=== PATIENT | female | born 1960 | race American Indian/Alaskan Native ===

== ENCOUNTER → 2017-09-20 15:09 | Outpatient (CLI) | payer OTHER, SELFPAY | PROVIDERS: Family Provider Family Medicine; PCP Family Medicine; Visit Provider Family Medicine | DX: R30.0 Dysuria (principal) | CPT/HCPCS: 87086 ==

== ENCOUNTER → 2017-10-16 19:09 | Outpatient (CLI) | payer OTHER, SELFPAY | PROVIDERS: Family Provider Family Medicine; PCP Family Medicine; Visit Provider Physician Assistant | DX: N39.0 Urinary tract infection, site not specified (principal) | CPT/HCPCS: 87086 ==

== ENCOUNTER → 2017-10-17 15:30 | Outpatient (CLI) | payer OTHER, SELFPAY ==
[2017-10-17 17:16] LABS: Urine N gonorrhoeae NOT DETECTED
[2017-10-17 17:25] LABS: Urine Chlamydia NOT DETECTED
== END ==
PROVIDERS: Family Provider Family Medicine; PCP Family Medicine; Visit Provider Physician Assistant
DX: Z11.3 Encounter for screening for infections with a predominantly sexual mode of transmission (principal); N39.0 Urinary tract infection, site not specified
CPT/HCPCS: 87491; 87591

== ENCOUNTER 2017-11-20 15:49 | Emergency (ER) | payer OTHER, SELFPAY ==
--- NOTE | 2017-11-20 15:57 | ED_ITS ---
HPI - Chest Pain <CAMRYN Landa - Last Filed: 11/20/17 22:19> General Chief Complaint: Chest Pain Stated Complaint: CHEST PAIN Time Seen by Provider: 11/20/17 15:56 Source: patient Mode of arrival: ambulatory Limitations: no limitations History of Present Illness HPI narrative: 56-year-old female with history of hypertension brought here by her primary care provider to to having a chest pain for the last 4 days. Patient states that she has had constant chest pain into her left side of her chest for the last 4 days. She states that she believes the symptoms started after she had an off brand of her lisinopril given to her 4 days ago. She states that she went back to the pharmacy and got her normal brand and is feeling better however she still is having some chest pain. She denies any nausea vomiting.. She does report that she did have some diaphoresis. She denies any stressors or relievers of her chest pain. She denies any shortness of breath patient is ambulatory into the emergency room. MD complaint: chest pain Related Data Previous Rx's Medication Instructions Recorded omeprazole 20 mg PO BID #60 cap 06/28/17 lisinopril 10 mg PO QDAY #45 tabs 07/29/17 carisoprodol 350 mg tablet 350 mg PO QHS PRN #90 tab 10/21/17 ibuprofen 800 mg tablet 800 mg PO BID #60 tab 11/19/17 oxycodone-acetaminophen 10 mg-325 1 tab PO Q4-6 HRS PRN #180 tab 11/20/17 mg tablet clotrimazole-betamethasone 1 1 applictn TOPICAL Q DAY #30 gram 11/22/17 %-0.05 % topical cream Blood pressure monitor #1 ea NS 11/26/17 Allergies Allergy/AdvReac Type Severity Reaction Status Date / Time codeine [CODEINE] Allergy Unknown NAUSEA, Verified 11/20/17 14:17 HEADACHE Review of Systems <CAMRYN Landa - Last Filed: 11/20/17 22:19> Constitutional Denies chills, Denies fatigue, Denies fever(s), Denies lethargy and Denies weakness Eyes Denies change in vision, Denies eye discharge, Denies irritation and Denies loss of vision ENT Ears, Nose, Mouth, and Throat: Denies change in voice, Denies neck pain and Denies sore throat Cardiovascular Reports chest pain, Denies dyspnea and Denies dyspnea on exertion Respiratory Denies cough, Denies dyspnea, Denies dyspnea on exertion and Denies wheezing Gastrointestinal Gastrointestinal: Denies abdominal pain, Denies change in bowel habits, Denies diarrhea, Denies nausea and Denies vomiting Genitourinary Denies hematuria, Denies flank pain, Denies urinary incontinence and Denies urinary urgency Musculoskeletal Denies neck pain Integumentary/Breasts Denies pruritus, Denies erythema, Denies rash and Denies wounds Neurologic Denies confusion, Denies loss of vision and Denies weakness Psychiatric Denies anxiety, Denies confusion, Denies depression, Denies homicidal ideation and Denies suicidal ideation Endocrine Denies fatigue and Denies flushing Hematologic/Lymphatic Denies easy bruising Allergic/Immunologic Denies wheezing Exam <CAMRYN Landa - Last Filed: 11/20/17 22:19> Initial Vital Signs Initial Vital Signs: Vital Signs Temperature 98.5 F 11/20/17 16:00 Pulse Rate 80 11/20/17 16:00 Respiratory Rate 16 11/20/17 16:00 Blood Pressure 120/52 L 11/20/17 16:00 Pulse Oximetry 98 11/20/17 16:00 Const General: cooperative and well developed Nutritional Appearance: well nourished Orientation: alert, awake, oriented x3 and not confused [facility] Mouth: oral mucosae normal and moist mucous membranes Neck Neck: normal visual inspection, trachea midline, No lymphadenopathy, No midline deformity and No JVD Lymphatic: No lymphedema Chest Chest: normal inspection of the chest Other: Slight tenderness on palpation to the left upper chest Resp Effort & Inspection: normal respiratory effort, able to speak in complete sentences, no respiratory distress and no use of accessory muscles Auscultation: clear to auscultation bilaterally, no rales, no rhonchi and no wheezes Cardio Rate: regular rate Rhythm: regular rhythm Heart Sounds: no click, no gallops, no murmurs and no rubs Skin General: no rashes or lesions noted, No jaundice and No petechiae Neuro General: alert, oriented x3, gait normal and no focal motor deficits Speech: speech normal <Ashok Servin DO - Last Filed: 12/07/17 07:59> Initial Vital Signs Initial Vital Signs: Vital Signs Temperature 98.5 F 07/25/18 16:00 Pulse Rate 80 11/20/17 16:00 Respiratory Rate 16 11/20/17 16:00 Blood Pressure 120/52 L 11/20/17 16:00 Pulse Oximetry 98 11/20/17 16:00 Course <CAMRYN Landa - Last Filed: 11/20/17 22:19> Orders Ordered: Discontinued Medications Sodium Chloride (Normal Saline 0.9%) 1,000 mls @ 150 mls/hr IV CONT MIGUEL Last Admin: 11/20/17 17:28 Dose: Vital Signs - 8 hr 11/20/17 16:00 11/20/17 16:37 11/20/17 17:06 Temperature 98.5 F Pulse Rate 80 88 68 Respiratory Rate 16 14 13 Blood Pressure 120/52 L Blood Pressure [Left Arm] 101/65 99/45 L Pulse Oximetry 98 97 97 <Ashok Servin DO - Last Filed: 12/07/17 07:59> Orders Ordered: Discontinued Medications Sodium Chloride (Normal Saline 0.9%) 1,000 mls @ 150 mls/hr IV CONT MIGUEL Last Admin: 11/20/17 17:28 Dose: Vital Signs - 8 hr 11/20/17 16:00 11/20/17 16:37 11/20/17 17:06 Temperature 98.5 F Pulse Rate 80 88 68 Respiratory Rate 16 14 13 Blood Pressure 120/52 L Blood Pressure [Left Arm] 101/65 99/45 L Pulse Oximetry 98 97 97 MDM - Chest Pain <CAMRYN Landa - Last Filed: 11/20/17 22:19> Lab Data Result diagrams: 11/20/17 16:07 11/20/17 16:07 Lab Results 11/20/17 11/20/17 Range/Units 16:07 16:07 WBC 8.3 (4.5-11.0) X10^3/uL RBC 4.68 (4.0-5.2) X10^6/uL Hgb 14.6 (12.0-16.0) g/dL Hct 43.2 (36-46) % MCV 92.3 (80-100) fL MCH 31.2 (26-34) PG MCHC 33.8 (30-36) % RDW 13.0 (11.6-14.8) % Plt Count 200 (150-400) X10^3/uL Neut % (Auto) 59.2 (50-75) % Lymph % (Auto) 30.3 (25-40) % Winston % (Auto) 9.0 (3-14) % Eos % (Auto) 1.0 L (2-4) % Baso % (Auto) 0.5 (0-2) % Neut # (Auto) 4900 (6787-2692) /uL Sodium 139 (137-145) mmol/L Potassium 4.1 (3.4-5.1) mmol/L Chloride 101 (98-107) mmol/L Carbon Dioxide 31 (22-32) mmol/L BUN 11 (7-17) mg/dL Creatinine 0.50 L (0.52-1.04) mg/dL Estimated GFR > 60.0 (>60) mL/min BUN/Creatinine Ratio 22.0 (6-22) Glucose 113 H (70-100) mg/dL Calcium 9.7 (8.4-10.2) mg/dL Total Bilirubin 0.3 (0.2-1.3) mg/dL AST 23 (14-36) IU/L ALT 23 (9-52) IU/L Alkaline Phosphatase 51 (38-126) U/L Total Creatine Kinase 180 H (30-135) U/L CK-MB (CK-2) 2.16 (<2.37) ng/mL CK-MB (CK-2) Rel Index 1.2 L (1.5-5.0) % Troponin I < 0.012 (0.01-0.034) ng/mL Total Protein 7.6 (6.3-8.2) g/dL Albumin 4.5 (3.5-5.0) g/dL Globulin 3.1 (1.7-4.1) g/dL Albumin/Globulin Ratio 1.5 (1.0-2.8) Imaging Data Chest x-ray: Radiologist's impression: Patient: Elsa Quan MR#: [id number] : 1960 Acct:[id number] Age/Sex: 56 / F Date of Service: 11/20/17 Loc: ED Accession Number: [id number] Procedure: XR chest 1V Ordering Provider: Stephon Villarreal PROCEDURE: XR CHEST 1V INDICATIONS: Chest pain TECHNIQUE: One view of the chest was acquired. COMPARISON: None. FINDINGS: Surgical changes and devices: None. Lungs and pleura: No pleural effusions or pneumothorax. Interstitial markings are accentuated right greater than left. Suboptimal inspiration. Mediastinum: Mediastinal contours appear normal. Heart size is normal. Bones and chest wall: No suspicious bony lesions. Overlying soft tissues appear unremarkable. IMPRESSION: Low inspiration normal chest Dictated by: Alban Villar M.D. on 11/20/2017 at 16:26 Approved by: Alban Villar M.D. on 11/20/2017 at 16:27 ECG Data Interpretation: EKG shows normal sinus rhythm with no ST elevation or depression. No ectopy. Ventricular rate is 75. Pr interval of 146. QRS duration is 94. QTC of 392 MDM Narrative Medical decision making narrative: EKG shows normal sinus rhythm with no ST elevation or depression. No ectopy. Chest x-ray was obtained was negative for any acute findings. CBC and Chem panel were obtained were unremarkable. Cardiac enzymes were obtained and were negative. Patient had some pain with palpation to her left upper chest wall signs and symptoms presents more as a muscle skeletal off discomfort more than cardiac. Follow up with primary care provider in the next few days for re-evaluation. If continued symptoms recommend further evaluation such as stress test. Use currently prescribed pain management regimen as needed for any discomfort. Return emergency room for any worsening symptoms. <Ashok Servin DO - Last Filed: 12/07/17 07:59> Lab Data Lab Results 11/20/17 11/20/17 Range/Units 16:07 16:07 WBC 8.3 (4.5-11.0) X10^3/uL RBC 4.68 (4.0-5.2) X10^6/uL Hgb 14.6 (12.0-16.0) g/dL Hct 43.2 (36-46) % MCV 92.3 (80-100) fL MCH 31.2 (26-34) PG MCHC 33.8 (30-36) % RDW 13.0 (11.6-14.8) % Plt Count 200 (150-400) X10^3/uL Neut % (Auto) 59.2 (50-75) % Lymph % (Auto) 30.3 (25-40) % Winston % (Auto) 9.0 (3-14) % Eos % (Auto) 1.0 L (2-4) % Baso % (Auto) 0.5 (0-2) % Neut # (Auto) 4900 (6421-4566) /uL Sodium 139 (137-145) mmol/L Potassium 4.1 (3.4-5.1) mmol/L Chloride 101 (98-107) mmol/L Carbon Dioxide 31 (22-32) mmol/L BUN 11 (7-17) mg/dL Creatinine 0.50 L (0.52-1.04) mg/dL Estimated GFR > 60.0 (>60) mL/min BUN/Creatinine Ratio 22.0 (6-22) Glucose 113 H (70-100) mg/dL Calcium 9.7 (8.4-10.2) mg/dL Total Bilirubin 0.3 (0.2-1.3) mg/dL AST 23 (14-36) IU/L ALT 23 (9-52) IU/L Alkaline Phosphatase 51 (38-126) U/L Total Creatine Kinase 180 H (30-135) U/L CK-MB (CK-2) 2.16 (<2.37) ng/mL CK-MB (CK-2) Rel Index 1.2 L (1.5-5.0) % Troponin I < 0.012 (0.01-0.034) ng/mL Total Protein 7.6 (6.3-8.2) g/dL Albumin 4.5 (3.5-5.0) g/dL Globulin 3.1 (1.7-4.1) g/dL Albumin/Globulin Ratio 1.5 (1.0-2.8) Discharge Plan Departure Patient Disposition: Home, Self-Care Clinical Impression: Chest pain Discharge Date/Time: 11/20/17 17:42 Interventions: ED Discharge Assessment Last Done: 11/20/17 17:41 Instructions: DI for Atypical Chest Pain Activity Restrictions/Additional Instructions: EKG, laboratory results and chest x-ray were unremarkable today. Signs and symptoms presents as chest wall muscular pain. [id number] Tylenol or currently prescribed pain management regimen as needed for any discomfort. Follow up with her primary care provider in the next few days for re- evaluation. If continued symptoms recommend discussing with primary care provider further evaluation such as stress test. Return emergency room for any worsening symptoms. Prescriptions: No Action oxycodone-acetaminophen [Percocet] 10-325 mg tablet 1 tab PO Q4-6 HRS PRN (Reason: pain) Qty: 180 RF: 0 carisoprodol 350 mg tablet 350 mg PO QHS PRN (Reason: spasms) Qty: 90 RF: 0 omeprazole 20 MG capsule,delayed release(DR/EC) 20 mg PO BID Qty: 60 RF: 3 lisinopril 20 MG tablet 10 mg PO QDAY Qty: 45 RF: 1 ibuprofen 800 mg tablet 800 mg PO BID Qty: 60 RF: 3 clotrimazole-betamethasone [Lotrisone] 1-0.05 % cream 1 applictn Topical Q DAY Qty: 30 RF: 0 Blood pressure monitor Qty: 1 RF: 0 Referrals: Candice Dorsey DO [Primary Care Provider] - <Ashok Servin DO - Last Filed: 12/07/17 07:59> Cosign ED Attending Elaine Attestation: I was immediately available in the department for consultation. Documentation has been reviewed. I agree with assessment and plan.
[2017-11-20 16:00] VITALS: BP 120/52; PULSE 80; RESP 16; TEMP 36.9; O2SAT 98; BMI 37.8
--- NOTE | 2017-11-20 16:09 | DI.RAD.S_ITS ---
PROCEDURE: XR CHEST 1V INDICATIONS: Chest pain TECHNIQUE: One view of the chest was acquired. COMPARISON: None. FINDINGS: Surgical changes and devices: None. Lungs and pleura: No pleural effusions or pneumothorax. Interstitial markings are accentuated right greater than left. Suboptimal inspiration. Mediastinum: Mediastinal contours appear normal. Heart size is normal. Bones and chest wall: No suspicious bony lesions. Overlying soft tissues appear unremarkable. IMPRESSION: Low inspiration normal chest Dictated by: Alban Villar M.D. on 11/20/2017 at 16:26 Approved by: Alban Villar M.D. on 11/20/2017 at 16:27
[2017-11-20 16:28] LABS: Add Manual Diff / Slide Review NO; Basophils Percent Auto 0.5 % (0-2); Hematocrit 43.2 % (36-46); Hemoglobin 14.6 g/dL (12.0-16.0); Lymphocytes Percent Auto 30.3 % (25-40); Mean Corpuscular HGB Conc 33.8 % (30-36); Mean Corpuscular Hemoglobin 31.2 PG (26-34); Mean Corpuscular Volume 92.3 fL (80-100); Neutrophils Absolute Auto 4900 /uL (3000-5900); Neutrophils Percent Auto 59.2 % (50-75); Platelet Count 200 X10^3/uL (150-400); Red Blood Cell Count 4.68 X10^6/uL (4.0-5.2); White Blood Cell Count 8.3 X10^3/uL (4.5-11.0)
[2017-11-20 16:37] VITALS: BP 101/65; PULSE 88; RESP 14; O2SAT 97
[2017-11-20 16:41] LABS: Alanine Aminotransferase 23 IU/L (9-52); Albumin 4.5 g/dL (3.5-5.0); Albumin Globulin Ratio 1.5 (1.0-2.8); Alkaline Phosphatase 51 U/L (38-126); Aspartate Aminotransferase 23 IU/L (14-36); Bilirubin Total 0.3 mg/dL (0.2-1.3); Blood Urea Nitrogen 11 mg/dL (7-17); Calcium 9.7 mg/dL (8.4-10.2); Carbon Dioxide 31 mmol/L (22-32); Chloride 101 mmol/L (98-107); Creatine Kinase 180 U/L (30-135); Estimated Glomerular Filt Rate > 60.0 mL/min (>60); Globulin 3.1 g/dL (1.7-4.1); Glucose 113 mg/dL (70-100); HEMOLYSIS < 15 (0-50); Potassium 4.1 mmol/L (3.4-5.1); Sodium 139 mmol/L (137-145); Total Protein 7.6 g/dL (6.3-8.2)
--- NOTE | 2017-11-20 16:42 | PC.NURSE ---
Pt states she has been dieting recently and has lost 5 lbs in 2 weeks. Occasionally only eats lettuce during the day. Discussed healthy weight loss strategy and increased activity.
[2017-11-20 16:56] LABS: CKMB % Relative Index 1.2 % (1.5-5.0); Creatine Kinase MB 2.16 ng/mL (<2.37)
[2017-11-20 16:58] LABS: Troponin I < 0.012 ng/mL (0.01-0.034)
[2017-11-20 17:06] VITALS: BP 99/45; PULSE 68; RESP 13; O2SAT 97
== END 2017-11-20 17:42 | disposition home or self-care (01) ==
PROVIDERS: Emergency Provider Nurse Practitioner Family; Family Provider Family Medicine; PCP Family Medicine
DX: R07.9 Chest pain, unspecified (principal)
CPT/HCPCS: 36591; 71045; 80053; 82550; 82553; 84484; 85025; 93005; 99283; 99285

== ENCOUNTER → 2017-11-28 08:17 | Outpatient (CLI) | payer OTHER, SELFPAY ==
[2017-11-28 10:38] LABS: Alanine Aminotransferase 23 IU/L (9-52); Albumin Globulin Ratio 1.3 (1.0-2.8); Alkaline Phosphatase 46 U/L (38-126); Aspartate Aminotransferase 24 IU/L (14-36); Bilirubin Total 0.4 mg/dL (0.2-1.3); Blood Urea Nitrogen 9 mg/dL (7-17); Calcium 9.4 mg/dL (8.4-10.2); Carbon Dioxide 33 mmol/L (22-32); Chloride 101 mmol/L (98-107); Cholesterol 201 mg/dL (140-199); Estimated Glomerular Filt Rate > 60.0 mL/min (>60); Globulin 3.1 g/dL (1.7-4.1); Glucose 94 mg/dL (70-100); HDL Cholesterol 51 mg/dL (40-60); HEMOLYSIS < 15 (0-50); LDL Cholesterol Calculated 107 mg/dL (<100); Potassium 4.2 mmol/L (3.4-5.1); Sodium 142 mmol/L (137-145); Total Protein 7.1 g/dL (6.3-8.2); Triglycerides 214 mg/dL (35-150)
[2017-11-28 10:51] LABS: Thyroid Stimulating Hormone 2.01 uIU/mL (0.47-4.68)
== END ==
PROVIDERS: Family Provider Family Medicine; PCP Family Medicine; Visit Provider Family Medicine
DX: I10 Essential (primary) hypertension (principal); Z51.81 Encounter for therapeutic drug level monitoring
CPT/HCPCS: 36415; 80053; 80061; 84443

== ENCOUNTER 2017-12-16 21:34 | Emergency (ER) | payer OTHER, SELFPAY ==
--- NOTE | 2017-12-16 21:43 | DI.RAD.S_ITS ---
PROCEDURE: XR CHEST 1V INDICATIONS: Chest Pain TECHNIQUE: One view of the chest was acquired. COMPARISON: [facility], CR, XR CHEST 1V, 11/20/2017, 16:14. FINDINGS: Surgical changes and devices: None. Lungs and pleura: No pleural effusions or pneumothorax. Lungs are clear. Mediastinum: Mediastinal contours appear normal. Heart size is normal. Bones and chest wall: No suspicious bony lesions. Overlying soft tissues appear unremarkable. IMPRESSION: No acute cardiopulmonary disease process. Dictated by: Stacie Blackmon MD, PhD on 12/17/2017 at 9:06 Approved by: Stacie Blackmon MD, PhD on 12/17/2017 at 9:06
[2017-12-16 21:52] VITALS: BP 149/59; PULSE 73
[2017-12-16] MEDS: ASPIRIN 81 MG TAB 324 MG PO (21:52)
[2017-12-16] MEDS: NITROGLYCERIN 0.4 MG SL TAB SL ×2 (21:52→22:06)
[2017-12-16 21:54] VITALS: BP 149/59; PULSE 73; RESP 14; TEMP 36.9; O2SAT 98
[2017-12-16 22:00] LABS: Add Manual Diff / Slide Review NO; Basophils Percent Auto 0.5 % (0-2); Eosinophils Percent Auto 1.3 % (2-4); Hematocrit 39.5 % (36-46); Hemoglobin 13.5 g/dL (12.0-16.0); Lymphocytes Percent Auto 34.8 % (25-40); Mean Corpuscular HGB Conc 34.2 % (30-36); Mean Corpuscular Hemoglobin 31.5 PG (26-34); Monocytes Percent Auto 9.8 % (3-14); Neutrophils Absolute Auto 4700 /uL (3000-5900); Neutrophils Percent Auto 53.6 % (50-75); Platelet Count 190 X10^3/uL (150-400); Red Blood Cell Count 4.29 X10^6/uL (4.0-5.2); Red Cell Distribution Width 12.7 % (11.6-14.8); White Blood Cell Count 8.7 X10^3/uL (4.5-11.0)
[2017-12-16 22:06] VITALS: BP 116/65; PULSE 72
[2017-12-16] MEDS: SODIUM CHLORIDE 0.9% 1,000 ML 150 ML IV (22:06)
[2017-12-16 22:09] LABS: Alanine Aminotransferase 23 IU/L (9-52); Albumin 4.2 g/dL (3.5-5.0); Albumin Globulin Ratio 1.4 (1.0-2.8); Alkaline Phosphatase 50 U/L (38-126); Aspartate Aminotransferase 21 IU/L (14-36); BUN Creatinine Ratio 23.3 (6-22); Bilirubin Total 0.3 mg/dL (0.2-1.3); Blood Urea Nitrogen 14 mg/dL (7-17); Calcium 9.1 mg/dL (8.4-10.2); Carbon Dioxide 29 mmol/L (22-32); Chloride 100 mmol/L (98-107); Creatine Kinase 146 U/L (30-135); Estimated Glomerular Filt Rate > 60.0 mL/min (>60); Globulin 2.9 g/dL (1.7-4.1); Glucose 100 mg/dL (70-100); HEMOLYSIS < 15 (0-50); Lipase 79 U/L (23-300); Potassium 4.2 mmol/L (3.4-5.1); Sodium 137 mmol/L (137-145); Total Protein 7.1 g/dL (6.3-8.2)
[2017-12-16 22:13] VITALS: BP 114/62; PULSE 72; RESP 15; O2SAT 96
[2017-12-16 22:15] VITALS: BP 114/62; PULSE 70
[2017-12-16 22:22] LABS: Troponin I < 0.012 ng/mL (0.01-0.034)
[2017-12-16 22:30] VITALS: BP 115/59; PULSE 69; RESP 12; O2SAT 97
--- NOTE | 2017-12-16 22:59 | DI.CT.S_ITS ---
PROCEDURE: CT ANGIO CHEST ABDOMEN PELVIS INDICATIONS: severe chest pain, radiation to back, arms, shortness of breath TECHNIQUE: Precontrast 5 mm thick sections acquired from the lung apices to the iliac crests. After the administration of intravenous contrast, 2.5 mm thick sections again acquired from the lung apices to the iliac crests. Maximum intensity projection (MIP) oblique sagittal and coronal reformats were then acquired. For radiation dose reduction, the following was used: automated exposure control. COMPARISON: None. FINDINGS: Image quality: Excellent. AORTA: Intramural hematoma: Absent Maximum hematoma thickness: Applicable. Focal contrast enhancement: Intramural blood pool (< 2 mm neck or imperceptible communication with aortic lumen): Absent. Ulcer-like projection (broad communication with aortic lumen > 3 mm): Absent. Dissection: Absent Mahomet classification: Not applicable Maximum aortic diameter: 3.4 cm. [If Sincere A dissection, > 5.0 cm has a poorer prognosis. If Sincere B dissection, > 4.0 cm has a poorer prognosis.] Periaortic hematoma: Absent. CHEST: Lungs and pleura: No acute airspace opacities. No pleural effusions or pneumothorax. Central and peripheral airways are patent and normal in caliber. Mediastinum: Heart size is normal. No pericardial effusion. No mediastinal or hilar adenopathy by size criteria. Central pulmonary arteries are normal in size. Esophagus is normal in caliber. No hiatal hernias. Bones and chest wall: No axillary adenopathy by size criteria. Thyroid gland is within normal limits. No suspicious bony lesions. No vertebral body compression fractures. ABDOMEN: Vasculature: Celiac trunk and mesenteric arteries are patent. Renal arteries are also patent. Solid organs: Liver is normal in size and enhancement. Small cyst left lobe of the liver. Gallbladder is within normal limits in. Biliary system is non dilated. Pancreas enhances normally. Spleen is normal in size and enhancement. No adrenal nodules. Both kidneys are normal in size and enhancement, without hydronephrosis. Peritoneum and bowel: No free fluid or air. Bowel loops are normal in caliber and wall thickness. A few scattered colonic diverticuli without evidence of diverticulitis. Nodes and vessels: No retroperitoneal or mesenteric adenopathy by size criteria. Inferior vena cava is normal in morphology. Miscellaneous: No ventral hernias. PELVIS: Genitourinary: Bladder wall thickness is normal. There is a 6.5 x 4.3 x 6.0 cm predominantly fat density mass with soft tissue density nodular component anterior left of the uterus in the region of left adnexa. The Miscellaneous: No inguinal hernias or adenopathy. No ventral hernias. Bones: No suspicious bony lesions. No vertebral body compression fractures. Spine degenerative disc disease and facet arthropathy. IMPRESSION: 1. No evidence of aortic dissection or aortic aneurysm. 2. 6.5 x 4.3 x 6.0 cm left ovarian dermoid-teratoma. Recommend gynecology consultation. 3. Colonic diverticulosis without evidence of diverticulitis. Dictated by: Stacie Blackmon MD, PhD on 12/17/2017 at 8:17 Approved by: Stacie Blackmon MD, PhD on 12/17/2017 at 8:44
[2017-12-17 00:44] VITALS: BP 110/50; PULSE 62; RESP 15; TEMP 36.8; O2SAT 100
--- NOTE | 2017-12-17 04:30 | ED_ITS ---
HPI - Chest Pain General Chief Complaint: Chest Pain Stated Complaint: CHEST PAIN SWELLING OF FEET Time Seen by Provider: 12/16/17 21:43 Source: patient and family Mode of arrival: ambulatory Limitations: no limitations History of Present Illness HPI narrative: 56-year-old female presents to the emergency department with a chief complaint continued chest pain for the past few weeks. She was seen and evaluated at the end of last month and had thorough evaluation including lab work, EKG and chest x-ray. Today she presents with persisting pain in her chest that radiates to her back and left shoulder. She denies provocation or palliation of the symptoms. She denies associated symptoms such as dizziness, weakness or lightheadedness. Related Data Previous Rx's Medication Instructions Recorded omeprazole 20 mg PO BID #60 cap 06/28/17 lisinopril 10 mg PO QDAY #45 tabs 07/29/17 carisoprodol 350 mg tablet 350 mg PO QHS PRN #90 tab 10/21/17 ibuprofen 800 mg tablet 800 mg PO BID #60 tab 11/19/17 oxycodone-acetaminophen 10 mg-325 1 tab PO Q4-6 HRS PRN #180 tab 11/20/17 mg tablet clotrimazole-betamethasone 1 1 applictn TOPICAL Q DAY #30 gram 11/22/17 %-0.05 % topical cream Blood pressure monitor #1 ea NS 11/26/17 nitroglycerin 0.4 mg SL Q5-15M PRN #60 tab 12/17/17 Allergies Allergy/AdvReac Type Severity Reaction Status Date / Time codeine [CODEINE] Allergy Unknown NAUSEA, Verified 11/20/17 14:17 HEADACHE Review of Systems Review of Systems All systems reviewed & are unremarkable except as noted in HPI and below Constitutional Denies chills, Denies fever(s), Denies lethargy and Denies weakness Eyes Denies change in vision, Denies eye discharge, Denies irritation and Denies loss of vision ENT Ears, Nose, Mouth, and Throat: Denies change in voice, Denies neck pain and Denies sore throat Cardiovascular Reports chest pain, Denies irregular heart rhythm, Denies lightheadedness, Denies palpitations, Denies dyspnea, Denies dyspnea on exertion and Denies orthopnea Respiratory Denies cough, Denies dyspnea, Denies dyspnea on exertion and Denies wheezing Gastrointestinal Gastrointestinal: Denies abdominal pain, Denies change in bowel habits, Denies diarrhea, Denies nausea and Denies vomiting Genitourinary Denies hematuria, Denies flank pain, Denies urinary incontinence and Denies urinary urgency Musculoskeletal Denies neck pain Integumentary/Breasts Denies pruritus, Denies erythema, Denies rash and Denies wounds Neurologic Denies confusion, Denies loss of vision and Denies weakness Psychiatric Denies anxiety, Denies confusion, Denies depression, Denies homicidal ideation and Denies suicidal ideation Endocrine Denies palpitations Hematologic/Lymphatic Denies easy bruising Allergic/Immunologic Denies wheezing [facility] Medical History Arthritis (Chronic Unknown) Chronic pain syndrome (Chronic Unknown) Hypertension (Chronic Unknown) Arthritis of knee (Inactive) Hypertension (Inactive) Insomnia (Inactive) Surgical History Hx of total knee arthroplasty (Resolved 07/2016) Family History Father No problems noted. Social History Smoking Status: Former smoker alcohol intake: never substance use type: does not use caffeine: Yes frequency: 3-4 times per week duration: 30-45 minutes/day Exam Narrative Exam Narrative: GENERAL: Anxious 56-year-old female is obviously uncomfortable and nervous HEAD: Atraumatic. Normocephalic. No temporal or scalp tenderness. EYES: Pupils equal round and reactive. Extraocular motions intact. No scleral icterus. No injection or drainage. ENT: Nose without bleeding, purulent drainage or septal hematoma. Throat without erythema, tonsillar hypertrophy or exudate. Uvula midline. Airway patent. NECK: Trachea midline. No JVD or lymphadenopathy. Supple, nontender, no meningeal signs. CARDIOVASCULAR: Regular rate and rhythm without murmurs, gallops, or rubs. RESPIRATORY: Clear to auscultation. Breath sounds equal bilaterally. No wheezes , rales, or rhonchi. GASTROINTESTINAL: Abdomen soft, non-tender, nondistended. No hepato-splenomegaly , or palpable masses. No guarding. EXTREMITIES: No clubbing, cyanosis, or edema. No joint tenderness, effusion, or edema noted. BACK: Nontender without deformity or crepitance. No flank tenderness. NEURO: AOx3. SKIN: No rash or erythema. Initial Vital Signs Initial Vital Signs: Vital Signs Pulse Rate 73 12/16/17 21:52 Blood Pressure 149/59 H 12/16/17 21:52 Scores HEART Score Heart Score history: Slightly Suspicious Heart Score EKG: Normal Heart Score Age: 45-64 years old Heart Score risk factors: 1-2 risk factors Heart Score troponin: < or = to normal limit Heart Score Total: 2 Course Orders Ordered: Discontinued Medications Aspirin (Aspirin Chew) 324 mg PO NOW ONE Stop: 12/16/17 21:44 Last Admin: 12/16/17 21:52 Dose: 324 mg Aspirin (Aspirin Chew) 324 mg PO NOW ONE Stop: 12/16/17 21:45 Last Admin: 12/16/17 22:15 Dose: Not Given Sodium Chloride (Normal Saline 0.9%) 1,000 mls @ 150 mls/hr IV CONT MIUGEL Last Admin: 12/16/17 22:06 Dose: 150 mls/hr Nitroglycerin (Nitrostat) 0.4 mg SL [id number] PRN PRN Reason: Chest Pain Last Admin: 12/16/17 22:06 Dose: 0.4 mg Admin: 12/16/17 21:52 Dose: 0.4 mg Reevaluation(s) Reevaluation #1: Patient has complete resolution of her symptoms after 2nd administered nitro Vital Signs - 8 hr 12/16/17 21:52 12/16/17 21:54 12/16/17 22:06 Temperature 98.4 F Pulse Rate 73 73 72 Respiratory Rate 14 Blood Pressure 149/59 H 149/59 H 116/65 Blood Pressure [Left Arm] Pulse Oximetry 98 12/16/17 22:13 12/16/17 22:15 12/16/17 22:30 Temperature Pulse Rate 72 70 69 Respiratory Rate 15 12 Blood Pressure 114/62 Blood Pressure [Left Arm] 114/62 115/59 L Pulse Oximetry 96 97 12/17/17 00:44 Temperature 98.2 F Pulse Rate 62 Respiratory Rate 15 Blood Pressure 110/50 L Blood Pressure [Left Arm] Pulse Oximetry 100 MDM - Chest Pain Differential Diagnosis Likely pneumothorax, stable angina, unstable angina pectoris, atypical chest pain, st elevation myocardial infarction, costochondritis, chest pain and biliary colic Medical Records Data Attestation: I reviewed the patient's medical records. Lab Data Attestation: I reviewed the patient's lab results. Result diagrams: 12/16/17 21:52 12/16/17 21:52 Lab Results 12/16/17 12/16/17 Range/Units 21:52 21:52 WBC 8.7 (4.5-11.0) X10^3/uL RBC 4.29 (4.0-5.2) X10^6/uL Hgb 13.5 (12.0-16.0) g/dL Hct 39.5 (36-46) % MCV 92.0 (80-100) fL MCH 31.5 (26-34) PG MCHC 34.2 (30-36) % RDW 12.7 (11.6-14.8) % Plt Count 190 (150-400) X10^3/uL Neut % (Auto) 53.6 (50-75) % Lymph % (Auto) 34.8 (25-40) % [place] % (Auto) 9.8 (3-14) % Eos % (Auto) 1.3 L (2-4) % Baso % (Auto) 0.5 (0-2) % Neut # (Auto) 4700 (2720-1947) /uL Sodium 137 (137-145) mmol/L Potassium 4.2 (3.4-5.1) mmol/L Chloride 100 (98-107) mmol/L Carbon Dioxide 29 (22-32) mmol/L BUN 14 (7-17) mg/dL Creatinine 0.60 (0.52-1.04) mg/dL Estimated GFR > 60.0 (>60) mL/min BUN/Creatinine Ratio 23.3 H (6-22) Glucose 100 (70-100) mg/dL Calcium 9.1 (8.4-10.2) mg/dL Total Bilirubin 0.3 (0.2-1.3) mg/dL AST 21 (14-36) IU/L ALT 23 (9-52) IU/L Alkaline Phosphatase 50 (38-126) U/L Total Creatine Kinase 146 H (30-135) U/L Troponin I < 0.012 (0.01-0.034) ng/mL Total Protein 7.1 (6.3-8.2) g/dL Albumin 4.2 (3.5-5.0) g/dL Globulin 2.9 (1.7-4.1) g/dL Albumin/Globulin Ratio 1.4 (1.0-2.8) Lipase 79 (23-300) U/L Imaging Data CT scan - chest: Radiologist's impression: PROCEDURE: CT ANGIO CHEST ABDOMEN PELVIS INDICATIONS: severe chest pain, radiation to back, arms, shortness of breath TECHNIQUE: Precontrast 5 mm thick sections acquired from the lung apices to the iliac crests. After the administration of intravenous contrast, 2.5 mm thick sections again acquired from the lung apices to the iliac crests. Maximum intensity projection (MIP) oblique sagittal and coronal reformats were then acquired. For radiation dose reduction, the following was used: automated exposure control. COMPARISON: None. FINDINGS: Image quality: Excellent. AORTA: Intramural hematoma: Absent Maximum hematoma thickness: Applicable. Focal contrast enhancement: Intramural blood pool (< 2 mm neck or imperceptible communication with aortic lumen): Absent. Ulcer-like projection (broad communication with aortic lumen > 3 mm): Absent. Dissection: Absent Sincere classification: Not applicable Maximum aortic diameter: 3.4 cm. [If Sincere A dissection, > 5.0 cm has a poorer prognosis. If Sincree B dissection, > 4.0 cm has a poorer prognosis.] Periaortic hematoma: Absent. CHEST: Lungs and pleura: No acute airspace opacities. No pleural effusions or pneumothorax. Central and peripheral airways are patent and normal in caliber. Mediastinum: Heart size is normal. No pericardial effusion. No mediastinal or hilar adenopathy by size criteria. Central pulmonary arteries are normal in size. Esophagus is normal in caliber. No hiatal hernias. Bones and chest wall: No axillary adenopathy by size criteria. Thyroid gland is within normal limits. No suspicious bony lesions. No vertebral body compression fractures. ABDOMEN: Vasculature: Celiac trunk and mesenteric arteries are patent. Renal arteries are also patent. Solid organs: Liver is normal in size and enhancement. Small cyst left lobe of the liver. Gallbladder is within normal limits in. Biliary system is non dilated. Pancreas enhances normally. Spleen is normal in size and enhancement. No adrenal nodules. Both kidneys are normal in size and enhancement, without hydronephrosis. Peritoneum and bowel: No free fluid or air. Bowel loops are normal in caliber and wall thickness. A few scattered colonic diverticuli without evidence of diverticulitis. Nodes and vessels: No retroperitoneal or mesenteric adenopathy by size criteria. Inferior vena cava is normal in morphology. Miscellaneous: No ventral hernias. PELVIS: Genitourinary: Bladder wall thickness is normal. There is a 6.5 x 4.3 x 6.0 cm predominantly fat density mass with soft tissue density nodular component anterior left of the uterus in the region of left adnexa. The Miscellaneous: No inguinal hernias or adenopathy. No ventral hernias. Bones: No suspicious bony lesions. No vertebral body compression fractures. Spine degenerative disc disease and facet arthropathy. IMPRESSION: 1. No evidence of aortic dissection or aortic aneurysm. 2. 6.5 x 4.3 x 6.0 cm left ovarian dermoid-teratoma. Recommend gynecology consultation. 3. Colonic diverticulosis without evidence of diverticulitis. Dictated by: Stacie Blackmon MD, PhD on 12/17/2017 at 8:17 Approved by: Stacie Blackmon MD, PhD on 12/17/2017 at 8:44 ECG Data Attestation: I personally reviewed and interpreted this ECG as follows: Prior ECG tracings: not available for review Interpretation: EKG is normal sinus rhythm and free of any signs of ischemia or ectopy. MDM Narrative Medical decision making narrative: Multiple diagnoses considered including ST elevated [place] which is ruled out by a normal EKG. Unstable angina and acute coronary syndrome considered but patient has no ongoing symptoms and has normal labs at this chronic stage of the game. Description of chest pain in her chest , back and shoulder raises the question of potential a dissection or pulmonary embolism but patient had a normal CT angiogram of chest abdomen and pelvis under dissection protocol. Nitro completely relieved the patient's pain which would suggest other etiologies like perhaps esophageal spasm given the above. Discharge Plan Departure Patient Disposition: Home Clinical Impression: Angina pectoris Discharge Date/Time: 12/17/17 00:47 Interventions: ED Discharge Assessment Last Done: 12/17/17 00:44 Instructions: Angina Activity Restrictions/Additional Instructions: There is no evidence of an emergent or life threatening illness at this time, but follow up with your doctor in 1-2 days is recommended nonetheless to continue to rule out serious underlying causes of your symptoms. Please call the office for an appointment. Please return to the Emergency Department for any worsening or persistent symptoms. Please take medications as directed. Prescriptions: New nitroglycerin 0.4 mg tablet, sublingual 0.4 mg SL Q5-15M PRN (Reason: chest pain) Qty: 60 RF: 0 No Action oxycodone-acetaminophen [Percocet] 10-325 mg tablet 1 tab PO Q4-6 HRS PRN (Reason: pain) Qty: 180 RF: 0 carisoprodol 350 mg tablet 350 mg PO QHS PRN (Reason: spasms) Qty: 90 RF: 0 omeprazole 20 MG capsule,delayed release(DR/EC) 20 mg PO BID Qty: 60 RF: 3 lisinopril 20 MG tablet 10 mg PO QDAY Qty: 45 RF: 1 ibuprofen 800 mg tablet 800 mg PO BID Qty: 60 RF: 3 clotrimazole-betamethasone [Lotrisone] 1-0.05 % cream 1 applictn Topical Q DAY Qty: 30 RF: 0 Blood pressure monitor Qty: 1 RF: 0 Referrals: Lemuel Rangel MD [Physician] -
== END 2017-12-17 00:47 | disposition home or self-care (01) ==
PROVIDERS: Emergency Provider Emergency Medicine; Family Provider Family Medicine; PCP Family Medicine
DX: I20.9 Angina pectoris, unspecified (principal)
CPT/HCPCS: 36591; 71045; 71275; 74174; 80053; 81003; 82550; 82553; 83690; 84484; 85025; 93005; 93010; 99282; 99285; Q9967

== ENCOUNTER → 2018-02-06 13:57 | Outpatient (CLI) | payer OTHER, SELFPAY ==
--- NOTE | 2018-02-06 14:42 | PM.TREADMILL ---
Cardiac Stress Test Report Referral & Results Date Patient Seen: 02/06/18 Time Patient Seen: 14:42 Requesting provider: Candice Dorsey Indication: Preop knee surgery, chest pain Rest ECG: Unremarkable Procedure Note: After both written and verbal informed consent the patient had an IV started by the diagnostic imaging RN and then was hooked up to the treadmill monitoring system. The patient was placed on the treadmill at 1 mile an hour with no elevation and was then injected with the Gemma scan material. The Cardiolite was then immediately administered. The patient spent an additional 2-3 minutes on the treadmill before being returned to the [facility] in the supine position. The patient had a normal response to all infused materials. There are no ST segment changes noted Rare PVCs were identified Impression: Normal response to infuse materials. Rare PVCs. Perfusion imaging will be reported separately Please note: Actual ECG tracings can be found in the PACS system.
--- NOTE | 2018-02-08 07:17 | DI.NM.S_ITS ---
DATE OF SERVICE: 02/06/2018 PROCEDURE: Pharmacologic perfusion study. INDICATIONS: Chest pain and preoperative evaluation. RADIOPHARMACEUTICAL: 24.4 mCi of technetium-99 Myoview IV was injected at stress, and 24.9 mCi of technetium-99 Myoview IV was injected at rest. CARDIAC STRESS: The patient underwent a pharmacologic perfusion study under the supervision of an attending staff. She was given IV Lexiscan as per standard protocol. She remained hemodynamically stable. No significant symptoms reported. Baseline EKG revealed sinus rhythm with some nonspecific ST changes. Stress EKG did not reveal any obvious inducible ischemic changes. There were no significant arrhythmias. RAW DATA: There was breast shadow seen. GATED STUDY: Resting LV ejection fraction was 72%, and stress LV ejection fraction was 81%. I don't see any significant wall motion abnormalities. Resting end-diastolic volume 104 mL. No transient ischemic dilatation. TID ratio is 0.94, which is within normal limits. Lung/heart ratio is 0.36, which is within normal limits. MYOCARDIAL PERFUSION SCAN: Stress supine, resting supine, and stress prone images were compared to each other. It appears to be that the patient has a small sized mildly decreased perfusion involving the anterior apex and distal anterior septum during stress supine images and mildly decreased perfusion of the base to mid anterior wall and distal anterior septum in resting supine images. Those defects got significantly improved during prone images. It suggests breast tissue attenuation artifact. CONCLUSION: I would call this study likely a normal myocardial perfusion study with evidence of breast tissue attenuation artifact, which got resolved during prone images. Overall, this is a low-risk myocardial perfusion scan. ORDERING PHYSICIAN: * PROCEDURE: * INDICATIONS: * CARDIAC STRESS: * RADIOPHARMACEUTICAL: * FINDINGS: * RAW DATA: * QUANTITATIVE GATED SPECT: * MYOCARDIAL PERFUSION SCAN: * IMPRESSION * Elsa Quan - MAMMAL KEEPER/fn/ts doc#: [id number]/job#: [id number] dd: 02/07/2018 16:36:00 dt: 02/08/2018 06:20:00 DICTATING MD/COPIES TO: Joselyn Mayer MD COPIES MNE: MILAD
== END ==
PROVIDERS: PCP Family Medicine; Visit Provider Family Medicine
DX: Z01.810 Encounter for preprocedural cardiovascular examination (principal); R07.9 Chest pain, unspecified
CPT/HCPCS: 78452; 93016; 93017; 93018; A9502; J2785

== ENCOUNTER → 2018-07-08 17:47 | Outpatient (CLI) | payer OTHER, SELFPAY ==
[2018-07-08 19:19] LABS: Add Manual Diff / Slide Review NO; Basophils Absolute Auto 0 /uL (0-100); Basophils Percent Auto 0.4 % (0-2); Eosinophils Absolute Auto 200 /uL (0-450); Eosinophils Percent Auto 2.5 % (2-4); Hematocrit 38.1 % (36-46); Hemoglobin 12.8 g/dL (12.0-16.0); Lymphocytes Absolute Auto 2800 /uL (1100-4500); Lymphocytes Percent Auto 40.5 % (25-40); Mean Corpuscular HGB Conc 33.6 % (30-36); Mean Corpuscular Hemoglobin 30.4 PG (26-34); Mean Corpuscular Volume 90.4 fL (80-100); Monocytes Absolute Auto 700 /uL (0-900); Monocytes Percent Auto 9.5 % (3-14); Neutrophils Absolute Auto 3300 /uL (1500-7000); Neutrophils Percent Auto 47.1 % (50-75); Platelet Count 215 X10^3/uL (150-400); Red Blood Cell Count 4.21 X10^6/uL (4.0-5.2); Red Cell Distribution Width 12.7 % (11.6-14.8)
[2018-07-08 19:38] LABS: Carbon Dioxide 28 mmol/L (22-32); Chloride 101 mmol/L (98-107); HEMOLYSIS < 15 (0-50); Potassium 4.4 mmol/L (3.4-5.1); Sodium 138 mmol/L (137-145)
== END ==
PROVIDERS: PCP Family Medicine; Visit Provider Orthopaedic Surgery
DX: Z01.818 Encounter for other preprocedural examination (principal); Z01.812 Encounter for preprocedural laboratory examination
CPT/HCPCS: 36415; 80051; 85025

== ENCOUNTER 2018-07-23 06:13 | Inpatient (IN) | payer OTHER, SELFPAY ==
[2018-07-14 13:55] VITALS: BMI 46.0
[2018-07-23] VITALS (16 sets, daily range): BP systolic 107–145; BP diastolic 50–74; PULSE 68–103; RESP 13–20; TEMP 35.9–37.2; O2SAT 92–98; BMI 44.7
--- NOTE | 2018-07-23 06:00 | DI.RAD.S_ITS ---
PROCEDURE: XR KNEE LT 1TO2V INDICATIONS: Postop left total knee arthroplasty TECHNIQUE: 2 view(s) of the knee acquired. COMPARISON: None. FINDINGS: Bones: Patient is status post knee joint arthroplasty. Hardware components are in expected positions. Visualized bony structures are intact. Soft tissues: Overlying postoperative changes are noted. IMPRESSION: Normal alignment after left knee arthroplasty. Dictated by: Malachi Lorenzo M.D. on 07/23/2018 at 11:38 Approved by: Malachi Lorenzo M.D. on 07/23/2018 at 11:39
[2018-07-23] MEDS: CELECOXIB 200 MG CAPSULE PO (06:54)
[2018-07-23] MEDS: ACETAMINOPHEN 325 MG TABLET 975 MG PO ×3 (06:54→19:48)
[2018-07-23] MEDS: PREGABALIN 75 MG CAPSULE PO (06:54)
[2018-07-23] MEDS: LACTATED RINGERS 1,000 ML 42 ML IV (07:00)
--- NOTE | 2018-07-23 07:46 | PM.PREOP ---
Pre-operative Note Interval Note History & Physical reviewed/Exam performed by Physician: Yes Changes to H&P: No
--- NOTE | 2018-07-23 07:47 | PM.OP.1 ---
Operative Date/Time/Diagnoses Date of procedure: 07/23/18 Time of procedure: 09:31 Pre-op diagnosis: Left knee osteoarthritis Post-op diagnosis: same Procedure & Clinicians Procedure: Left total knee arthroplasty Same procedure as scheduled: Yes Indications: The patient presents today for total knee arthroplasty after failure of conservative treatment. The nature of the procedure including the risks and benefits, alternatives, postoperative course and expected outcome were discussed and all questions answered. Consent was obtained. Operative site confirmed and marked. Surgeon: Gerald Wilkerson Radio Survey Worker: Festus Hancock Anesthesia Type: General, Spinal and Local Operative Notes Findings: Severe osteoarthritis with valgus alignment Closure Type: primary Specimen(s): none sent Prosthetic devices, grafts, tissues, transplants, or devices: Ramandeep Persona TKA 7 CR femoral component, E stemmed tibial component, 10 mm MC polyethylene tray and 32 mm all poly patella. Applied: implant(s) Estimated Blood Loss (mL): 75 Blood products transfused: none Tourniquet time (min): 22 Procedure in detail: The patient was taken to the operative suite and placed under general anesthesia. The patient was given prophylactic antibiotics prior to surgery. The patient was also given tranexamic acid, 1 g, just prior to surgery for postoperative hemostasis. The lateral knee was prepped and the joint injected with 20 mL of 1% Lidocaine with epinephrine. The knee was then prepped and draped in usual sterile fashion. The leg was exsanguinated with an Esmarch dressing and the tourniquet raised to 250 torr. A 15 cm anterior incision was made. Next a medial trivector arthrotomy was made. The extensor mechanism was marked to ensure accurate repair. Initial exposing dissection was carried out medially and laterally. The knee was then extended and the patellar thickness was measured and a cut made removing approximately 9 mm of bone. The patella was then sized and drilled. Some excess lateral bone was excised and the patellofemoral ligament released. The knee was then flexed and the intramedullary femoral guide mick placed. The distal femoral cut was made in 5? of valgus at the +0 position. The femoral size was measured and the appropriate cutting block was then placed and the anterior, posterior and chamfer cuts made. The extra medullary tibial alignment mick was then placed along the anatomic axis of the tibia approximating the normal slope. The guide was set to remove approximately 8 mm from the less affected medial side. The proximal tibial cut was then made with an oscillating saw. All meniscus and bony debris was then removed. Flexion extension gaps were checked. The knee was tight laterally which was corrected by releasing the lateral capsules with a 15 blade using a pie crust technique. The soft tissues were then injected with a combination of 20 mL of half percent Marcaine with epinephrine and 20 mL of Exparel. The trial components were then placed. The knee went into full extension and flexion beyond 120?. There was excellent medial- lateral balance throughout motion. Patellar tracking was excellent. The trial components were removed and the knee was cleansed with Pulsavac irrigation and dried. The final components were cemented in with high viscosity vacuum mixed bone cement with antibiotics. The knee was held in extension and the patellar clamp until the cement had adequately cured. The knee was irrigated and inspected for any further debris. The knee was then irrigated with dilute Betadine solution. The extensor mechanism was closed with 2 interrupted #1 Vicryl and a Quill suture in 90 degrees of flexion. The joint was then injected with a combination of 1 g of tranexamic acid and 20 mL of quarter percent Marcaine with epinephrine. The subcutaneous tissue was closed with 2-0 Vicryl. The skin was closed with renata and surgical adhesive. An Aquacell dressing and Raimundo wrap were then applied. The patient tolerated the procedure well and was returned to recovery room in good condition. Complications: none Disposition: PACU Plan for aftercare: [facility] protocol for total knee arthroplasty.
[2018-07-23] MEDS: CEFAZOLIN 2 GM/100 ML FROZ.PIGGY IV ×2 (07:51→15:53)
[2018-07-23] MEDS: TRANEXAMIC ACID 1,000 MG VIAL 1000 MG INJ (08:00)
[2018-07-23] MEDS: LIDOCAINE 1% W/EPI INJ 20 ML INJ (08:15)
--- NOTE | 2018-07-23 08:31 | SUR.OPER ---
Supine on padded OR bed. Pillow under head, arms secured on padded armboards <90 degree abduction. Safety belt across torso. Non-operative leg secured with tape over blanket over lower leg. Operative leg secured in DeMayo/Jimenez positioner. Foam padded brace at thigh of operative leg.
[2018-07-23] MEDS: BUPIVACAINE 0.25% W/ EPI 30 ML VIAL 50 ML INJ (08:43)
[2018-07-23] MEDS: BUPIVACAINE LIPOSOME 266 MG/20 ML VIAL INJ (08:45)
[2018-07-23] MEDS: POVIDONE-IODINE 15 ML, SODIUM CHLORIDE 0.9% 250 ML TOP (09:09)
--- NOTE | 2018-07-23 10:16 | PC.NURSE ---
Pt to room 1010 alert, oriented deneis pain and nausea. Oriented to room and call light.
--- NOTE | 2018-07-23 11:02 | PC.NURSE ---
Day Shift- Rec'd report from PAO [place] in PACU at 0950 on current pt status. Pt arrived to room 202 via bed, VSS, pt very sleepy, arousable, denies any pain, on continuous O2 monitoring. O2 sat 97% on 2L NC while sleeping. Admission done by PAO [place] Coordinator.
[2018-07-23] MEDS: LACTATED RINGERS 1,000 ML 125 ML IV (13:09)
[2018-07-23] MEDS: HYDROMORPHONE 0.5 MG INJ 0.2 MG IV ×2 (13:09→16:09)
[2018-07-23] MEDS: OXYCODONE IR 5 MG TABLET 10 MG PO ×3 (14:08→23:16)
[2018-07-23] MEDS: hydrOXYzine pamoate 25 MG CAPSULE PO ×2 (14:08→20:03)
--- NOTE | 2018-07-23 14:55 | PT.IIE ---
Current Diagnoses Unilateral primary osteoarthritis, left knee (07/23/18) Surgery Performed Operation Date: 07/23/18 07:45 Actual Procedures p Total Knee Arthroplasty(Left) - Gerald Wilkerson MD Surgical History (Last Reviewed 07/18/18 @ 15:06 by Candice Dorsey DO) History of (Acute) Hx of total knee arthroplasty (Resolved 07/2016) Medical History (Last Reviewed 07/18/18 @ 15:06 by Candice Dorsey DO) Bilateral shoulder pain (Acute ~2016) Numbness (Acute) Arthritis (Chronic Unknown) Chronic pain syndrome (Chronic Unknown) Hypertension (Chronic Unknown) Arthritis of knee (Inactive) Hypertension (Inactive) Insomnia (Inactive) Physical Therapy Inpatient Evaluation/Re-Eval M1 PT/OT-IP Prior Functional Status Start: 07/23/18 15:53 Freq: NEEDED Status: Active Protocol: Document 07/23/18 14:55 DLM (Rec: 07/23/18 16:09 DL [id number]) Medical Review Prior Functional Status Medical History Reviewed Yes Diet/Fluid Consistency Regular Communication WNL Mobility and Gait Independent without device, knee pain limited her distances of gait Activities of Daily Living and IADL's Independent Social History Household Members none Living Arrangements Apartment/Condo Number of Floors (Floors) One Floor Number of Stairs To Enter/Railing? 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 PT-IP Current Condition Start: 07/23/18 15:53 Freq: NEEDED Status: Active Protocol: Document 07/23/18 14:55 DLM (Rec: 07/23/18 16:09 DL [id number]) Physical Therapy Current Condition Current Condition Evaluation Date 07/23/18 Treatment Diagnosis left TKA, impaired gait Onset Date 07/23/18 Weight Bearing Status Weight Bearing Status Weight Bear as Tolerated M3 PT-IP Subjective Start: 07/23/18 15:53 Freq: NEEDED Status: Active Protocol: Document 07/23/18 14:55 DLM (Rec: 07/23/18 16:09 DLM [id number]) Subjective Physical Therapy Visit Type Type Initial Evaluation Visit Start Time 14:25 Visit Stop Time 14:55 Total Visit Minutes 30 Number of MARKETING OPERATIONS ANALYST Visits 0 Physical Therapy Visit Comments Patient Comments She needs to use the toilet Patient Goals return home Therapy Pain Assessment Pain When Pain Assessed After Treatment Pain Present Pain Present Pain Reported Location Left Knee Intensity 3 Scale Used Numeric (1 - 10) Description Aching Pain Management Techniques Apply Cold Elevation M4 PT-IP Mobility and Gait Start: 07/23/18 15:53 Freq: NEEDED Status: Active Protocol: Document 07/23/18 14:55 DLM (Rec: 07/23/18 16:09 [facility] [id number]) PT-Bed Mobility Assessment Supine to Sit Supine to Sit Standby Assistance Scooting Scooting to Edge of Bed Standby Assistance PT-Transfer Assessment Sit to and From Stand Sit to and from Stand Contact Guard Assistance Minimal Assistance Use of Upper Extremities Equipment Transfer Assistive Device Gait Belt Front Wheeled Walker Transfers Transfer Destination Chair Bedside Commode Transfer Technique Stand Step Pivot Transfer Ability Level of Assist Contact Guard Assistance Minimal Assistance Use of Upper Extremities Comments Mobility Comments pt up to recliner at end of visit with feet elevated and call light close Gait Assessment Gait Gait Assistance Required: Contact Guard Assist Minimum Assistance Distance (Feet) 2 Able to Maintain Weight Bearing Status Yes During Gait Assistive Devices Assistive Device Gait Belt Front Wheeled Walker Gait Deviations General Gait Pattern Antalgic Factors Limiting Gait Function Factors Limiting Gait Function Decreased Activity Tolerance Decreased Strength Pain PT-Balance Assessment Sitting Balance and Reactions Static Sitting Balance Ability Normal Dynamic Sitting Balance Ability Normal Standing Balance and Reactions Static Standing Balance Ability Good Dynamic Standing Balance Ability Fair Device Used FWW M5 PT-IP Objective Assessments Start: 07/23/18 15:53 Freq: NEEDED Status: Active Protocol: Document 07/23/18 14:55 DLM (Rec: 07/23/18 16:09 [facility] [id number]) Orientation Orientation/Cognition Level of Alertness Alert Orientation Name Age Birthday Month Date Year Day of Week Place Situation Language Function Ability No Deficits Noted Safety Awareness Understands Safety Issues Memory Description No Deficits Noted Gross Range of Motion Upper Extremity ROM Assessment Within Functional Limits Lower Extremity ROM Assessment Left Impaired Impairments left knee limited post-op, tolerated 90 degrees sitting edge of bed, knee ext -10 degrees in supine Strength Upper Extremity Strength Assessment Within Functional Limits Lower Extremity Strength Assessment Left Impaired Hip needs assist to lift LE off bed (SLR) Knee seated knee ext 2+/5 Ankle DF 4/5 Comments Strength Comments left knee limited by pain post -op, saad wrap in place Coordination Assessment Gross Coordination Gross Coordination WNL Sensation Assessment Comments Sensation Comments she reports very little numbness remains from the block Muscle Tone Muscle Tone WNL Yes M6 PT-IP Treatment Start: 07/23/18 15:53 Freq: NEEDED Status: Active Protocol: Document 07/23/18 14:55 DLM (Rec: 07/23/18 16:09 DLM [id number]) Physical Therapy Treatment Exercises Exercises Ankle Pumps Education Education Provided Precautions Weight Bearing Status Safety M7 PT-IP Assessment and Plan Start: 07/23/18 15:53 Freq: NEEDED Status: Active Protocol: Document 07/23/18 14:55 DLM (Rec: 07/23/18 16:09 DLM [id number]) PT Summary Assessment and Plan Potential Rehabilitation Potential Excellent Status of Condition at Evaluation Evolving Summary Impairments Pain ROM Strength Balance Bed Mobility Transfers Gait Activity Tolerance Goals Bed Mobility Goal Independent Transfer Goal Independent Front Wheeled Walker Gait Goal Independent Front Wheel Walker Gait Distance 100 feet Days to Meet Goals 2 Frequency of Treatment Frequency Of Treatment Twice a Day Treatment Plan Physical Therapy Treatment Plan Bed Mobility Training Transfer Training Gait Training Therapeutic Exercise Recommendations To Nursing Amount of Assist Needed 1 Person Assist Discharge Recommendations PT Discharge Recommendations Home with Assistance Outpatient PT
[2018-07-23] MEDS: HYDROMORPHONE 2 MG TABLET PO ×2 (16:10→19:48)
[2018-07-23] MEDS: LISINOPRIL 20 MG TABLET PO (19:47)
[2018-07-23] MEDS: ASPIRIN EC 81 MG TABLET PO (19:48)
[2018-07-24] VITALS (7 sets, daily range): BP systolic 107–144; BP diastolic 61–90; PULSE 80–95; RESP 16–20; TEMP 36.1–37.1; O2SAT 97–98
[2018-07-24] MEDS: HYDROMORPHONE 0.5 MG INJ 0.2 MG IV
[2018-07-24] MEDS: CEFAZOLIN 2 GM/100 ML FROZ.PIGGY IV (00:55)
[2018-07-24] MEDS: OXYCODONE IR 5 MG TABLET 10 MG PO ×3 (02:14→17:21)
--- NOTE | 2018-07-24 06:08 | PC.NURSE ---
Pt is AxOx3, frequently crying or tearful about left knee pain. Stating her muscle spasms shoot through her leg. Vistaril given. Dilaudid 0.2mg IV, and Percolone 10mg given. Able to move from commode to bed with one person assist. Needs help lifting up her left leg however. Aquacel is clean, dry, and intact. ABX given as ordered.
[2018-07-24] MEDS: hydrOXYzine pamoate 25 MG CAPSULE PO ×5 (06:30→23:46)
[2018-07-24 07:22] LABS: Hematocrit 36.7 % (36-46); Hemoglobin 12.4 g/dL (12.0-16.0)
--- NOTE | 2018-07-24 07:41 | PM.PNPO.1 ---
Subjective Date Patient Seen: 07/24/18 Time Patient Seen: 07:41 Interval history: Patient's pain is currently 6/10. She was having more severe pain later last night and early this morning. Denies fever chills. No nausea vomiting. She has not yet worked with physical therapy. She does have assistance at home when she is discharged. Exam Vital Signs (past 8 hours): - 07/23/18 23:45 07/24/18 05:00 Temperature 97.9 F 98.1 F Pulse Rate 98 H 83 Respiratory Rate 18 18 Blood Pressure 112/61 107/74 Pulse Oximetry 96 97 Oxygen Delivery Method Room Air Oxygen Flow Rate 2 Narrative Exam Narrative: 57-year-old female sitting comfortably in bedside chair in no apparent distress. Left knee dressing is clean, dry and intact. Left leg is warm and dry. Sensation grossly intact to light touch. Motor function is intact distally. Objective Labs Result Diagrams: 07/24/18 06:55 Labs: Laboratory Results - last 24 hr 07/24/18 06:55 Hgb 12.4 Hct 36.7 Assessment & Plan Post-op Postoperative Procedures Operation Date: 07/23/18 07:45 Actual Procedures Side Surgeon p Total Knee Arthroplasty Left Gerald Wilkerson MD Postop day 1 status post left total knee arthroplasty. Patient progressing as expected. Mobilize with physical therapy. Work on pain management. Possible discharge home later today or tomorrow.
[2018-07-24] MEDS: HYDROMORPHONE 2 MG TABLET PO ×5 (08:27→23:46)
[2018-07-24] MEDS: ASPIRIN EC 81 MG TABLET PO ×2 (08:27→21:02)
[2018-07-24] MEDS: ACETAMINOPHEN 325 MG TABLET 975 MG PO ×3 (08:28→21:00)
[2018-07-24] MEDS: IBUPROFEN 400 MG TABLET 800 MG PO ×2 (08:38→16:06)
--- NOTE | 2018-07-24 10:29 | PC.NURSE ---
Day Shift- Pt anxious this AM and teary at times regarding pain management plan. PRN pain meds switched from Oxycodone to Dilaudid PO, and PRN Ibuprofen. Pt states with her last knee replacement surgery, she was prescribed prn Dilaudid. Ice pack used to left knee intermittently. Pt OOB in chair for breakfast, Ambulated to BR slowly, pt's pain at that time was 9/10, assisted back to bed and pain meds listed above given. ENC pillow under lower leg and below knee. Pt reported at that time not wanting to discharge today, encouraged that pt was still needing to be seen by PT and monitor new pain plan. Call light within reach.
--- NOTE | 2018-07-24 10:51 | PT.IPTN ---
Current Diagnoses Unilateral primary osteoarthritis, left knee (07/23/18) Surgery Performed Operation Date: 07/23/18 07:45 Actual Procedures p Total Knee Arthroplasty(Left) - Gerald Wilkerson MD Physical Therapy Treatment Note M2 PT-IP Current Condition Start: 07/23/18 15:53 Freq: NEEDED Status: Active Protocol: Document 07/23/18 14:55 DLM (Rec: 07/23/18 16:09 DLM [id number]) Physical Therapy Current Condition Current Condition Evaluation Date 07/23/18 Treatment Diagnosis left TKA, impaired gait Onset Date 07/23/18 Weight Bearing Status Weight Bearing Status Weight Bear as Tolerated M3 PT-IP Subjective Start: 07/23/18 15:53 Freq: NEEDED Status: Active Protocol: Document 07/24/18 10:42 SA (Rec: 07/24/18 10:51 SA [id number]) Subjective Physical Therapy Visit Type Type Treatment Note Visit Start Time 10:06 Visit Stop Time 10:37 Total Visit Minutes 31 Number of TEMPLATE CHECKER Visits 1 Physical Therapy Visit Comments Patient Comments Pt reports she had a rough night last night, knee really hurts. Therapy Pain Assessment Pain When Pain Assessed During Mobility Pain Present Pain Present Pain Reported Location Left Knee Intensity 6 Scale Used Numeric (1 - 10) Pain Management Techniques Apply Cold Re-positioning Timing of Activity with Medications M4 PT-IP Mobility and Gait Start: 07/23/18 15:53 Freq: NEEDED Status: Active Protocol: Document 07/24/18 10:42 SA (Rec: 07/24/18 10:51 SA [id number]) PT-Bed Mobility Assessment Rolling Type of Rolling Roll to Left Level of Assist Standby Assistance Supine to Sit Supine to Sit Standby Assistance Scooting Scooting to Edge of Bed Standby Assistance Scooting Up and Down in Bed Standby Assistance PT-Transfer Assessment Sit to and From Stand Sit to and from Stand Contact Guard Assistance Use of Upper Extremities Equipment Transfer Assistive Device Gait Belt Front Wheeled Walker Orthotic/Prosthetic Devices or Brace: No Transfers Transfer Destination Chair Toilet Transfer Technique Stand Step Pivot Transfer Ability Level of Assist Contact Guard Assistance 1 Person Assistance Comments Mobility Comments Pt needed increased time and segmental movements for supine to sit but was able to do with CGA out of L side of bed, attemptted getting out on R side as this is her bed set up at home but pt unable. CGA with stand pivot txs to chair and toilet. Gait Assessment Gait Gait Assistance Required: Contact Guard Assist Distance (Feet) 85 Able to Maintain Weight Bearing Status Yes During Gait Assistive Devices Assistive Device Gait Belt Front Wheeled Walker Orthotic/Prosthetic Devices or Brace: No Gait Deviations General Gait Pattern Antalgic Decreased Stride Length Decreased Feet Clearance Factors Limiting Gait Function Factors Limiting Gait Function Decreased Activity Tolerance Decreased Strength Poor Balance Comments Gait Comments Pt able to gradually increase WBing through LLE with as we walked, uses FWW safely with cues for increasing step length and upright posture. Pt states she has ramp to get into home. PT-Balance Assessment Comments Other Balance Tests/Deviations/Treatment Standing static/dynamic : balance training at sink during had washing and washing of face. M5 PT-IP Objective Assessments Start: 07/23/18 15:53 Freq: NEEDED Status: Active Protocol: Document 07/23/18 14:55 DLM (Rec: 07/23/18 16:09 DLM [id number]) Orientation Orientation/Cognition Level of Alertness Alert Orientation Name Age Birthday Month Date Year Day of Week Place Situation Language Function Ability No Deficits Noted Safety Awareness Understands Safety Issues Memory Description No Deficits Noted Gross Range of Motion Upper Extremity ROM Assessment Within Functional Limits Lower Extremity ROM Assessment Left Impaired Impairments left knee limited post-op, tolerated 90 degrees sitting edge of bed, knee ext -10 degrees in supine Strength Upper Extremity Strength Assessment Within Functional Limits Lower Extremity Strength Assessment Left Impaired Hip needs assist to lift LE off bed (SLR) Knee seated knee ext 2+/5 Ankle DF 4/5 Comments Strength Comments left knee limited by pain post -op, saad wrap in place Coordination Assessment Gross Coordination Gross Coordination WNL Sensation Assessment Comments Sensation Comments she reports very little numbness remains from the block Muscle Tone Muscle Tone WNL Yes M6 PT-IP Treatment Start: 07/23/18 15:53 Freq: NEEDED Status: Active Protocol: Document 07/24/18 10:42 SA (Rec: 07/24/18 10:51 SA [id number]) Physical Therapy Treatment Exercises Exercises Ankle Pumps Gluteal Sets Quad Sets Heel Slides Education Education Provided Precautions Weight Bearing Status Safety M7 PT-IP Assessment and Plan Start: 07/23/18 15:53 Freq: NEEDED Status: Active Protocol: Document 07/24/18 10:42 SA (Rec: 03/28/19 10:51 SA [id number]) PT Summary Assessment and Plan Potential Rehabilitation Potential Excellent Status of Condition at Evaluation Evolving Summary Assessment Summary Pain management is most limiting factor for patient and she is very focused on it, but can actually mobilize well when she tries. CGA with most mobilities and no increase in pain level at end of session. Frequency of Treatment Frequency Of Treatment Twice a Day Treatment Plan Physical Therapy Treatment Plan Bed Mobility Training Transfer Training Gait Training Therapeutic Exercise Recommendations To Nursing Amount of Assist Needed 1 Person Assist Discharge Recommendations PT Discharge Recommendations Home with Assistance Outpatient PT
--- NOTE | 2018-07-24 11:34 | CM.DANOTE ---
Patient is a 57 year old female who was admitted on 07/23/18 for Left Total Knee. Pt has WATERS for insurance and her PCP is Dr. Candice Dorsey. EMR was reviewed. Per PA, pt tolerated procedure well but having some pain management issues and has assist available for home and pending PT pt could d/c home today or tomorrow. Per PT, pt has a ramp into her home and lives alone but has family to assist if needed. Currently recommending safe d/c home with assist and outpt PT and will work further with pt later today and hopefully pain better controlled. SW attempted bedside assessment but pt was working with therapy. Plan: SW to follow closely to confirm that pt is safe for d/c home with assist and outpt PT later today or tomorrow pending pain control. JULIETH Meier Discharge Planning/Care Management CM Discharge Assessment Start: 07/24/18 11:33 Freq: Status: Active Protocol: Document 07/24/18 11:33 BF (Rec: 07/24/18 11:34 BF [id number]) Discharge Planning Assessment Assigned Heel Shaver JULIETH Beverly Advance Directives? No History Provided By Patient Medical Record Has Patient been admitted in last 30 No days? Prior Living Arrangements Apartment/Condo Household Members none Type of transporation used prior to Drives own vehicle admit Independent with ADL's Yes Is patient alert and oriented? Yes Caregiver for Another No Patient/Family Preference OP PT Therapy Comment Per PT, likely home with assist and outpt PT Barriers to Discharge No Discharge Plan Home Community Services Physical Therapy Transportation Arrangement Family can likely provide transport at d/c Referrals Initiated None needed Review Status In Process Please Provide Date Initial DC 07/24/18 Assessment Was Performed Next Review Type Continued Stay Review Pre-Anesthesia Assessment Start: 07/14/18 13:55 Freq: Status: Complete Protocol: Document 07/14/18 13:55 CAB (Rec: 07/14/18 14:21 CAB [id number]) Pre-Anesthesia Assessment Patient Information Reviewed Via Phone Assessment Assessment Completed With Patient Diagnostic Results BMP/CMP CBC Comment Labs @ [facility] 07/08/18 Primary Care Provider Candice Dorsey Medical Clearance Received Yes Seen Specialist in Last 12 Months Yes Specialist Seen Emergency Orthopedist Comment PCP clearance 05/26/18 scanned to record Primary Language [employer] Professional Required No Height 162.56 cm Weight 121.563 kg Body Mass Index (BMI) 46.0 Visual Assist Contacts Glasses Dentition Type Teeth, Missing Partial- Upper Barriers to Learning None Other Aids No Hx Anesthesia Reactions Yes: Post-op nausea, vomiting Hx Family Anesthesia Reaction No Hx Malignant Hyperthermia No Hx Blood Transfusions No Anesthesia Review Requested No Installations Inspector No alcohol intake former alcohol intake frequency 0-2 drinks per day Alcohol Intake Frequency Other: Quit 30 years ago Smoking Status Former smoker Tobacco type cigarettes cannabis/marijuana how long ago did patient quit smoking Quit 35 years ago Substance Use Type does not use Pain Present Pain Reported Musculoskeletal Symptoms Abnormal Gait Difficulty Walking Joint Pain History of Falling (Recent or History of Yes ) Patient is completely paralyzed or No completely immobile Mental Status Oriented to own ability Is patient on oxygen? No Does patient have WATTS/SOB No Hx Sleep Apnea No Currently Taking a Beta Kayleigh No Can You Climb a Flight of Stairs Without Yes SOB Hx Chest Pain Yes: Nuc stress 02/06/18 @[facility], normal study Hx SOB No Hx Syncope or Dizziness No Anti-Coagulant Therapy No Has a Senior Maintenance Machinist No Cardiac Testing Yes: Nuc stress 02/06/18 @[facility], normal study Hx Pacemaker/ICD No Pacemaker Rep Required? No Diet Type At Home Regular dysphagia No Bladder Pattern Nocturia Urinary Catheter Present No Hx Urinary Self Catheterization No Diabetes No Patient No Lactating No Hx Drug Resistant Organism No Presence of External or Internal Medical No Devices Have you traveled outside the [facility] States in the last 30 days? Marital Status Lives With none Prior Living Arrangements Apartment/Condo Number of Floors (Floors) One Floor Support System Child/Children Does the Patient Have Assistance After Yes Surgery Patient Discharge Plan Description Return Home Comment Pt not advised on length of stay per surgeon's office Feels Safe in Current Environment Yes Been Physically Hurt or Threatened By a No Person in Current Environment Do you have thoughts of harming yourself None or others? Are you currently considering suicide? No Do you have a plan to hurt yourself or No Plan others? Do You Have Any Spiritual Beliefs That No May Affect Your HC Choices? Do You Have Any Cultural Practices That No May Affect Your HC Choices? Spiritual Referral None Comment Adventist Who Can We Speak to About Patient's Care Family, friends Identifying Code for Release of Patient Declines to issue Information Health Care Proxy/Next of Kin Francisca Gordon (Friend) Health Care Proxy Emergency Contact Name Benigno (brother) Emergency Contact Advance Directives? No: Declines further information PAC Instructions Do not shave/clip surgical site Durable medical equipment Medications to take/avoid Nasal antibiotic No ETOH/petroleum product on skin DOS NPO Post-op transportation Pre-surgical wash Sturdy shoes/comfortable clothes Do not bring valuables and remove jewelry
--- NOTE | 2018-07-24 15:17 | PT.IPTN ---
Current Diagnoses Unilateral primary osteoarthritis, left knee (07/23/18) Surgery Performed Operation Date: 07/23/18 07:45 Actual Procedures p Total Knee Arthroplasty(Left) - Gerald Wilkerson MD Physical Therapy Treatment Note M2 PT-IP Current Condition Start: 07/23/18 15:53 Freq: NEEDED Status: Active Protocol: Document 07/23/18 14:55 DLM (Rec: 07/23/18 16:09 DLM [id number]) Physical Therapy Current Condition Current Condition Evaluation Date 07/23/18 Treatment Diagnosis left TKA, impaired gait Onset Date 07/23/18 Weight Bearing Status Weight Bearing Status Weight Bear as Tolerated M3 PT-IP Subjective Start: 07/23/18 15:53 Freq: NEEDED Status: Active Protocol: Document 07/24/18 15:08 SA (Rec: 07/24/18 15:17 SA [email or web address]) Subjective Physical Therapy Visit Type Type Treatment Note Visit Start Time 13:52 Visit Stop Time 14:18 Total Visit Minutes 26 Number of DATABASE ADMINISTRATION ASSOCIATE Visits 2 Physical Therapy Visit Comments Patient Comments Pt feeling better this afternoon, reports pain is less and up in chair. Therapy Pain Assessment Pain When Pain Assessed During Mobility Pain Present Pain Present Pain Reported Location Left Knee Intensity 5 Scale Used Numeric (1 - 10) Pain Management Techniques Apply Cold Re-positioning Timing of Activity with Medications M4 PT-IP Mobility and Gait Start: 07/23/18 15:53 Freq: NEEDED Status: Active Protocol: Document 07/24/18 15:08 SA (Rec: 07/24/18 15:17 SA [email or web address]) PT-Bed Mobility Assessment Rolling Type of Rolling Roll to Left Level of Assist Standby Assistance Supine to Sit Supine to Sit Standby Assistance Scooting Scooting to Edge of Bed Standby Assistance Scooting Up and Down in Bed Standby Assistance PT-Transfer Assessment Sit to and From Stand Sit to and from Stand Standby Assistance Use of Upper Extremities Equipment Transfer Assistive Device Gait Belt Front Wheeled Walker Orthotic/Prosthetic Devices or Brace: No Transfers Transfer Destination Chair Toilet Transfer Technique Stand Step Pivot Transfer Ability Level of Assist Standby Assistance 1 Person Assistance Comments Mobility Comments Pt with improving WBing through LLE, able to clear LEs over EOB with greater ease. SBA for stand pivot txs with FWW. No LOB Gait Assessment Gait Gait Assistance Required: Standby Assistance Contact Guard Assist Distance (Feet) 125 Able to Maintain Weight Bearing Status Yes During Gait Assistive Devices Assistive Device Gait Belt Front Wheeled Walker Orthotic/Prosthetic Devices or Brace: No Gait Deviations General Gait Pattern Antalgic Decreased Stride Length Decreased Feet Clearance Factors Limiting Gait Function Factors Limiting Gait Function Decreased Activity Tolerance Decreased Strength Poor Balance Comments Gait Comments Pt taking longer steps and WBing better through LLE, increased distance and quality of gait. Stair Climbing Assessment Comments Stair Climbing Comments Pt declined attempting a step today, wants to try tomorrow. Has one step to get into work and ramp at home. M5 PT-IP Objective Assessments Start: 07/23/18 15:53 Freq: NEEDED Status: Active Protocol: Document 07/24/18 15:08 SA (Rec: 07/24/18 15:17 SA [email or web address]) Sensation Assessment Comments Sensation Comments Decreasing pain. M6 PT-IP Treatment Start: 07/23/18 15:53 Freq: NEEDED Status: Active Protocol: Document 07/24/18 15:17 SA (Rec: 07/24/18 15:17 SA [email or web address]) Physical Therapy Treatment Exercises Exercises Ankle Pumps Gluteal Sets Quad Sets Heel Slides Education Education Provided Post-Op Packet Safety M7 PT-IP Assessment and Plan Start: 07/23/18 15:53 Freq: NEEDED Status: Active Protocol: Document 07/24/18 15:08 SA (Rec: 07/24/18 15:17 SA [email or web address]) PT Summary Assessment and Plan Potential Rehabilitation Potential Excellent Status of Condition at Evaluation Evolving Summary Assessment Summary Pt progressing with decreased pain and improving gait and transfer ability, encouraged to continue with ROM exercises in bed. Frequency of Treatment Frequency Of Treatment Twice a Day Treatment Plan Physical Therapy Treatment Plan Bed Mobility Training Transfer Training Gait Training Therapeutic Exercise Recommendations To Nursing Amount of Assist Needed 1 Person Assist Discharge Recommendations PT Discharge Recommendations Home with Assistance Outpatient PT
[2018-07-24] MEDS: LISINOPRIL 20 MG TABLET PO (21:02)
[2018-07-24] MEDS: OXYCODONE IR 10 MG TABLET PO (22:20)
[2018-07-25] VITALS: BP 145/58; PULSE 87; RESP 18; TEMP 36.7; O2SAT 97
[2018-07-25] MEDS: HYDROMORPHONE 0.5 MG INJ 0.2 MG IV (00:49)
[2018-07-25] MEDS: IBUPROFEN 400 MG TABLET 800 MG PO ×3 (03:39→14:17)
[2018-07-25] MEDS: HYDROMORPHONE 2 MG TABLET PO ×3 (03:39→14:19)
[2018-07-25] MEDS: OXYCODONE IR 5 MG TABLET 10 MG PO (03:43)
--- NOTE | 2018-07-25 04:02 | PC.NURSE ---
Pt has rated her pain 9-6/10 throughout shift. She has been given IVP dilaudid, po dilaudid, po oxycodone, po ibuprofen and po APAP with only short periods of pain reduction.
[2018-07-25 06:34] VITALS: BP 100/54; PULSE 75; RESP 16; TEMP 36.3; O2SAT 96
[2018-07-25 08:00] VITALS: BP 114/52; PULSE 83; RESP 18; TEMP 36.8; O2SAT 98
[2018-07-25] MEDS: METHOCARBAMOL 500 MG TABLET 750 MG PO (08:43)
[2018-07-25] MEDS: ACETAMINOPHEN 325 MG TABLET 975 MG PO ×2 (08:44→14:18)
[2018-07-25] MEDS: ASPIRIN EC 81 MG TABLET PO (08:44)
[2018-07-25] MEDS: OXYCODONE IR 10 MG TABLET PO ×3 (08:44→16:59)
--- NOTE | 2018-07-25 08:49 | PM.PNPO.1 ---
Exam Vital Signs (past 8 hours): - 07/25/18 06:34 Temperature 97.3 F L Pulse Rate 75 Respiratory Rate 16 Blood Pressure 100/54 L Pulse Oximetry 96 Fraction of Inspired Oxygen 21 Oxygen Delivery Method Room Air Oxygen Flow Rate 0 Objective Labs Result Diagrams: 07/24/18 06:55 Assessment & Plan Post-op Postoperative Procedures Operation Date: 07/23/18 07:45 Actual Procedures Side Surgeon p Total Knee Arthroplasty Left Gerald Wilkerson MD
--- NOTE | 2018-07-25 09:31 | PT.IPTN ---
Current Diagnoses Unilateral primary osteoarthritis, left knee (07/23/18) Surgery Performed Operation Date: 07/23/18 07:45 Actual Procedures p Total Knee Arthroplasty(Left) - Gerald Wilkerson MD Physical Therapy Treatment Note M2 PT-IP Current Condition Start: 07/23/18 15:53 Freq: NEEDED Status: Active Protocol: Document 07/23/18 14:55 DLM (Rec: 07/23/18 16:09 DLM [id number]) Physical Therapy Current Condition Current Condition Evaluation Date 07/23/18 Treatment Diagnosis left TKA, impaired gait Onset Date 07/23/18 Weight Bearing Status Weight Bearing Status Weight Bear as Tolerated M3 PT-IP Subjective Start: 07/23/18 15:53 Freq: NEEDED Status: Active Protocol: Document 07/25/18 09:31 LJ (Rec: 07/25/18 09:31 LJ [id number]) Subjective Physical Therapy Visit Type Type Patient Refusal Physical Therapy Visit Comments Patient Comments In too much pain. Will try in afternoon M4 PT-IP Mobility and Gait Start: 07/23/18 15:53 Freq: NEEDED Status: Active Protocol: Document 07/24/18 15:08 SA (Rec: 07/24/18 15:17 SA [email or web address]) PT-Bed Mobility Assessment Rolling Type of Rolling Roll to Left Level of Assist Standby Assistance Supine to Sit Supine to Sit Standby Assistance Scooting Scooting to Edge of Bed Standby Assistance Scooting Up and Down in Bed Standby Assistance PT-Transfer Assessment Sit to and From Stand Sit to and from Stand Standby Assistance Use of Upper Extremities Equipment Transfer Assistive Device Gait Belt Front Wheeled Walker Orthotic/Prosthetic Devices or Brace: No Transfers Transfer Destination Chair Toilet Transfer Technique Stand Step Pivot Transfer Ability Level of Assist Standby Assistance 1 Person Assistance Comments Mobility Comments Pt with improving WBing through LLE, able to clear LEs over EOB with greater ease. SBA for stand pivot txs with FWW. No LOB Gait Assessment Gait Gait Assistance Required: Standby Assistance Contact Guard Assist Distance (Feet) 125 Able to Maintain Weight Bearing Status Yes During Gait Assistive Devices Assistive Device Gait Belt Front Wheeled Walker Orthotic/Prosthetic Devices or Brace: No Gait Deviations General Gait Pattern Antalgic Decreased Stride Length Decreased Feet Clearance Factors Limiting Gait Function Factors Limiting Gait Function Decreased Activity Tolerance Decreased Strength Poor Balance Comments Gait Comments Pt taking longer steps and WBing better through LLE, increased distance and quality of gait. Stair Climbing Assessment Comments Stair Climbing Comments Pt declined attempting a step today, wants to try tomorrow. Has one step to get into work and ramp at home. M5 PT-IP Objective Assessments Start: 07/23/18 15:53 Freq: NEEDED Status: Active Protocol: Document 07/24/18 15:08 SA (Rec: 07/24/18 15:17 SA [email or web address]) Sensation Assessment Comments Sensation Comments Decreasing pain. M6 PT-IP Treatment Start: 07/23/18 15:53 Freq: NEEDED Status: Active Protocol: Document 07/24/18 15:17 SA (Rec: 07/24/18 15:17 SA [email or web address]) Physical Therapy Treatment Exercises Exercises Ankle Pumps Gluteal Sets Quad Sets Heel Slides Education Education Provided Post-Op Packet Safety M7 PT-IP Assessment and Plan Start: 07/23/18 15:53 Freq: NEEDED Status: Active Protocol: Document 07/24/18 15:08 SA (Rec: 07/24/18 15:17 SA [email or web address]) PT Summary Assessment and Plan Potential Rehabilitation Potential Excellent Status of Condition at Evaluation Evolving Summary Assessment Summary Pt progressing with decreased pain and improving gait and transfer ability, encouraged to continue with ROM exercises in bed. Frequency of Treatment Frequency Of Treatment Twice a Day Treatment Plan Physical Therapy Treatment Plan Bed Mobility Training Transfer Training Gait Training Therapeutic Exercise Recommendations To Nursing Amount of Assist Needed 1 Person Assist Discharge Recommendations PT Discharge Recommendations Home with Assistance Outpatient PT
--- NOTE | 2018-07-25 11:20 | PC.NURSE ---
Addendum entered by Jocelyne Argueta R.N. 07/25/18 13:09: pt states prn Vistaril works better for her spams more than prn Robaxin. Therefore prn Vistaril given with scheduled Oxycodone at 1300. Pt stated she will go home today and her daughter will be able to pick her up around 1900 after her work. pt states she [facility] in [place]. Original Note: Day Shift- Pt A&OX4, able to make her needs known using call light. OOB with SBA using FWW, ambulating slowly, sitting up in chair for most of morning. Pain management plan discussed with SREEDHAR Perez this AM around 0730. Pt updated with pain plan, agreeable. Pt given Scheduled 10mg Oxycodone, Robaxin, and scheduled Tylenol. Pain/spasms 10/10 to left knee. SREEDHAR Perez reported to stagger pain meds by at least one hour when possible. Upon reassessment, pain to left knee decreased to 6/10 with pt reporting having 2 spams in that 1 hour. Diluadid 2mg po prn and Scheduled Ibuprofen given. Ice pack on/off throughout morning. Left knee aquacel dressing intact with 2 small spots to mid/proximal end of dressing, marked by this resume writer this AM. Plan for discharge later today pending pain management.
--- NOTE | 2018-07-25 11:41 | PM.PNPO.1 ---
Subjective Date Patient Seen: 07/25/18 Interval history: Patient is seen bedside status post left total knee arthroplasty. She is postop day 2. She is doing well with therapy however her pain has been uncontrolled all night. Has been consistently a 9/10. She was a chronic opioid user prior to surgery. She took Dilaudid for her last knee replacement with some relief. It does not appear to be helping at this time. She denies calf pain numbness tingling shortness of breath or chest pain. She is complaining of severe spasms in the leg that Vistaril does not help. Exam Vital Signs (past 8 hours): - 07/25/18 06:34 07/25/18 08:00 Temperature 97.3 F L 98.3 F Pulse Rate 75 83 Respiratory Rate 16 18 Blood Pressure 100/54 L 114/52 L Pulse Oximetry 96 98 Fraction of Inspired Oxygen 21 Oxygen Delivery Method Room Air Oxygen Flow Rate 0 Narrative Exam Narrative: Well-developed well-nourished no acute distress. Alert oriented x3. Dressing on left knee is clean dry and intact with moderate swelling around the joint. Calf is soft and compressible with 2+ pulses this extremity and a capillary refills less than 2 seconds. Objective Labs Result Diagrams: 07/24/18 06:55 Assessment & Plan Post-op Postoperative Procedures Operation Date: 07/23/18 07:45 Actual Procedures Side Surgeon p Total Knee Arthroplasty Left Gerald Wilkerson MD 1. POD #2 s/p above procedure-Discussion was had with the patient regarding her pain management. Because for tolerance for opioids and long use of oxycodone every 4 hours, she was placed back on this as a scheduled dose. She may have Dilaudid 2 mg and 4 mg every 3 hours as needed for pain additionally. Patient is being treated like this because the baseline of oxycodone treats her day-to-day pain and will not touch the acute pain she is feeling. Add Robaxin to help with muscle spasms as needed as well as scheduled ibuprofen. If patient's pain is controlled later today, she may go home. If not discharge tomorrow.
--- NOTE | 2018-07-25 11:46 | P.PN_ITS ---
Subjective Date Patient Seen: 07/25/18 Interval history: Patient is seen bedside status post left total knee arthro plasty. She is postop day 2. She is doing well with therapy however her pain has been uncontrolled all night. Has been consistently a 9/10. She was a chronic opioid user prior to surgery. She took Dilaudid for her last knee replacement with some relief. It does not appear to be helping at this time. She denies calf pain numbness tingling shortness of breath or chest pain. She is complaining of severe spasms in the leg that Vistaril does not help. Exam Vital Signs (past 8 hours): - 07/25/18 06:34 07/25/18 08:00 Temperature 97.3 F L 98.3 F Pulse Rate 75 83 Respiratory Rate 16 18 Blood Pressure 100/54 L 114/52 L Pulse Oximetry 96 98 Fraction of Inspired Oxygen 21 Oxygen Delivery Method Room Air Oxygen Flow Rate 0 Narrative Exam Narrative: Well-developed well-nourished no acute distress. Alert oriented x3. Dressing on left knee is clean dry and intact with moderate swelling around the joint. Calf is soft and compressible with 2+ pulses this extremity and a capillary refills less than 2 seconds. Objective Labs Result Diagrams: 07/24/18 06:55 Assessment & Plan Post-op Postoperative Procedures Operation Date: 07/23/18 07:45 Actual Procedures Side Surgeon p Total Knee Arthroplasty Left Gerald Wilkerson MD 1. POD #2 s/p above procedure-Discussion was had with the patient regarding her pain management. Because for tolerance for opioids and long use of oxycodone every 4 hours, she was placed back on this as a scheduled dose. She may have Dilaudid 2 mg and 4 mg every 3 hours as needed for pain additionally. Patient is being treated like this because the baseline of oxycodone treats her d ay-to-day pain and will not touch the acute pain she is feeling. Add Robaxin to help with muscle spasms as needed as well as scheduled ibuprofen. If patient's pain is controlled later today, she may go home. If not discharge tomorrow.
[2018-07-25 12:00] VITALS: BP 122/54; PULSE 75; RESP 18; TEMP 36.6; O2SAT 100
[2018-07-25] MEDS: hydrOXYzine pamoate 25 MG CAPSULE PO (12:58)
--- NOTE | 2018-07-25 15:59 | PT.IPTN ---
Current Diagnoses Unilateral primary osteoarthritis, left knee (07/23/18) Surgery Performed Operation Date: 07/23/18 07:45 Actual Procedures p Total Knee Arthroplasty(Left) - Gerald Wilkerson MD Physical Therapy Treatment Note M2 PT-IP Current Condition Start: 07/23/18 15:53 Freq: NEEDED Status: Active Protocol: Document 07/23/18 14:55 DLM (Rec: 07/23/18 16:09 DLM [id number]) Physical Therapy Current Condition Current Condition Evaluation Date 07/23/18 Treatment Diagnosis left TKA, impaired gait Onset Date 07/23/18 Weight Bearing Status Weight Bearing Status Weight Bear as Tolerated M3 PT-IP Subjective Start: 07/23/18 15:53 Freq: NEEDED Status: Active Protocol: Document 07/25/18 15:52 GGD (Rec: 07/25/18 15:59 GGD [id number]) Subjective Physical Therapy Visit Type Type Treatment Note Visit Start Time 15:25 Visit Stop Time 15:50 Total Visit Minutes 25 Number of CARDING MACHINE OPERATOR Visits 3 Physical Therapy Visit Comments Patient Comments Pt willint to work with therapy. Therapy Pain Assessment Pain When Pain Assessed During Mobility Pain Present Pain Present Pain Reported Location Left Knee Intensity 7 Scale Used Numeric (1 - 10) Pain Management Techniques Apply Cold Re-positioning M4 PT-IP Mobility and Gait Start: 07/23/18 15:53 Freq: NEEDED Status: Active Protocol: Document 07/25/18 15:52 GGD (Rec: 07/25/18 15:59 GGD [id number]) PT-Bed Mobility Assessment Rolling Type of Rolling Roll to Left Level of Assist Standby Assistance Supine to Sit Supine to Sit Standby Assistance Scooting Scooting to Edge of Bed Standby Assistance Scooting Up and Down in Bed Standby Assistance PT-Transfer Assessment Sit to and From Stand Sit to and from Stand Standby Assistance Use of Upper Extremities Equipment Transfer Assistive Device Gait Belt Front Wheeled Walker Orthotic/Prosthetic Devices or Brace: No Transfers Transfer Destination Chair Transfer Technique Stand Step Pivot Transfer Ability Level of Assist Standby Assistance 1 Person Assistance Gait Assessment Gait Gait Assistance Required: Standby Assistance Contact Guard Assist Distance (Feet) 130 Able to Maintain Weight Bearing Status Yes During Gait Assistive Devices Assistive Device Gait Belt Front Wheeled Walker Orthotic/Prosthetic Devices or Brace: No Gait Deviations General Gait Pattern Antalgic Decreased Stride Length Decreased Feet Clearance Factors Limiting Gait Function Factors Limiting Gait Function Decreased Activity Tolerance Decreased Strength Poor Balance M5 PT-IP Objective Assessments Start: 07/23/18 15:53 Freq: NEEDED Status: Active Protocol: Document 07/24/18 15:08 SA (Rec: 07/24/18 15:17 SA [email or web address]) Sensation Assessment Comments Sensation Comments Decreasing pain. M6 PT-IP Treatment Start: 07/23/18 15:53 Freq: NEEDED Status: Active Protocol: Document 07/25/18 15:52 GGD (Rec: 07/25/18 15:59 GGD [id number]) Physical Therapy Treatment Exercises Exercises Ankle Pumps Gluteal Sets Quad Sets Heel Slides Seated Knee Flexion/Extension Education Education Provided Safety M7 PT-IP Assessment and Plan Start: 07/23/18 15:53 Freq: NEEDED Status: Active Protocol: Document 07/25/18 15:52 GGD (Rec: 07/25/18 15:59 GGD [id number]) PT Summary Assessment and Plan Summary Assessment Summary Pt progressing with mobility. She was safe and stable with gait with FWW. Pt has good understanding of postop TKA exercises. Pt safe for home D/ C when medically stable. Frequency of Treatment Frequency Of Treatment Twice a Day Treatment Plan Physical Therapy Treatment Plan Bed Mobility Training Transfer Training Gait Training Therapeutic Exercise Recommendations To Nursing Amount of Assist Needed 1 Person Assist Discharge Recommendations PT Discharge Recommendations Home with Assistance Outpatient PT
[2018-07-25 16:15] VITALS: BP 116/64; PULSE 71; RESP 15; TEMP 36.7; O2SAT 99
--- NOTE | 2018-08-14 07:12 | P.DS_ITS ---
History of Present Illness Date Patient Seen: 07/25/18 Chief complaint: Left Total Knee Arthroplasty Narrative: Please see progress note dated 07/25/18. Discharge Providers Date of admission: 07/23/18 06:13 Discharge Date: 07/25/18 Primary care physician: Candice Dorsey DO Consults: 07/23/18 06:00 Consult to Anesthesiology Routine Comment: Consulting Provider: Anesthesiologist Reason for consultation: Regional block for post operative pain control 07/23/18 12:00 Consult to Discharge Planning Routine Comment: Consult to Physical Therapy Evaluate & Treat Comment: Physician Instructions: postop TKA protocol Consult to Respiratory Therapy Evaluate & Treat Comment: Physician Instructions: Evaluate and treat Discharge provider: Ana Wynne PA-C Summary Discharge Diagnosis: Left knee osteoarthritis Hospital Course: Patient was admitted to the hospital s/p L. TKA on 07/23/[address] Wilkerson. Patient tolerated the procedure well with no complications. She was transferred to the acute care floor where she was placed on the standard joint replacement pathway and protocol. She had some pain control issues related to her chronic opiate use, but pain became controlled and she was able to be discharged home on 07/25/18 after being cleared by physical therapy. Status at Discharge Cognitive/behavioral status at discharge: oriented Functional status at discharge: uses cane/walker Overall status at discharge: patient is progressing back to baseline Time Spent with Patient Less than 30 minutes Exam Vital Signs (past 8 hours): Fraction of Inspired Oxygen 21 Oxygen Delivery Method Room Air Oxygen Flow Rate 0 Narrative Exam Narrative: Please see progress note dated 07/23/18. Objective Labs Result Diagrams: 07/24/18 06:55 Discharge Plan Discharge Plan Patient Disposition: Home Discharge comment: d/c in afternoon if pain is controlled Discharge Med Rec/Prescriptions Prescriptions: New aspirin 81 mg Tablet,Delayed Release (Dr/Ec) 81 mg PO BID Qty: 0 RF: 0 hydromorphone 2 mg Tablet 2 mg PO Q4H PRN (Reason: pain) Qty: 40 RF: 0 Narcan 4 mg/actuation spray,non-aerosol 1 spray NASAL Q2M PRN (Reason: opioid overdose) Qty: 2 RF: 0 hydroxyzine pamoate [Vistaril] 25 mg capsule 25 mg PO Q6-8H PRN (Reason: nausea and vomiting) Qty: 60 RF: 0 Continued oxycodone-acetaminophen 10-325 mg tablet 1 tab PO Q4-6H PRN (Reason: pain) Qty: 180 RF: 0 ibuprofen 800 mg tablet 400 - 800 mg PO BID PRN (Reason: pain) Qty: 60 RF: 2 hydroxyzine HCl 25 mg tablet 25 mg PO QID PRN (Reason: nausea and vomiting) Qty: 60 RF: 2 lisinopril 20 mg tablet 20 mg PO BEDTIME RF: 0 clotrimazole-betamethasone [Lotrisone] 1-0.05 % cream 1 applictn Topical Q DAY RF: 0 Follow up/Referrals: Gerald Wilkerson MD [Physician] - (Follow up Festus Hancock PA-C on 07/30/18 at 2:00pm at the [facility]) Provider Discharge Instructions Diet: Diet as Tolerated Activity: Weightbearing as tolerated, use walker until cleared by physical therapy. Elevate operative leg regularly to reduce swelling. Other treatments: Please refer to your [facility] path book for any other questions and instructions. Skin/Wound/Dressing Care Report to your healthcare provider any signs of infection, such as:: chills, fever, night sweats, increased pain, unusual drainage and unusual redness Dressing: Keep dressing clean, dry, and intact. May shower with it in place but no soaking. Visit Report/Discharge Packet Instructions: DI for Heart Failure, DI for Knee Replacement, How to Prevent Falls, DI for Postoperative Pain Stand Alone Forms: Surgery Discharge Discharge Data Primary Care Provider: Candice Dorsey Attending Provider: Gerald Wilkerson Admit Date/Time: 07/23/18 06:13 Discharges patient from system. Discharge Date/Time: 07/25/18 19:44
== END 2018-07-25 19:44 | disposition home or self-care (01) | DRG 470 ==
PROVIDERS: Physician Assistant Medical; Admitting Provider Orthopaedic Surgery; PCP Family Medicine; Visit Provider Orthopaedic Surgery
PROC: 0SRD0JZ Replacement of Left Knee Joint with Synthetic Substitute, Open Approach (ICD-10-PCS; CPT 27447; principal; 2018-07-23 07:45)
DX: M17.12 Unilateral primary osteoarthritis, left knee (principal); Z68.42 Body mass index [BMI] 45.0-49.9, adult; I10 Essential (primary) hypertension; E66.01 Morbid (severe) obesity due to excess calories; G89.29 Other chronic pain
CPT/HCPCS: 36415; 73560; 85014; 85018; 94760; 94762; 97116; 97162; 97530; C1776; C9290; J0690; J1100; J1170; J2250; J2405; J2704

== ENCOUNTER → 2019-11-26 08:07 | Outpatient (CLI) | payer OTHER, SELFPAY ==
[2019-03-30 16:39] VITALS: BMI 44.7
[2019-11-26 09:37] LABS: Add Manual Diff / Slide Review NO; Basophils Absolute Auto 0 /uL (0-100); Basophils Percent Auto 0.4 % (0-2); Eosinophils Absolute Auto 100 /uL (0-450); Eosinophils Percent Auto 1.3 % (2-4); Hematocrit 38.2 % (36-46); Hemoglobin 12.9 g/dL (12.0-16.0); Lymphocytes Absolute Auto 2000 /uL (1100-4500); Lymphocytes Percent Auto 30.7 % (25-40); Mean Corpuscular HGB Conc 33.8 % (30-36); Mean Corpuscular Hemoglobin 31.2 PG (26-34); Mean Corpuscular Volume 92.4 fL (80-100); Monocytes Absolute Auto 500 /uL (0-900); Neutrophils Absolute Auto 3900 /uL (1500-7000); Neutrophils Percent Auto 59.6 % (50-75); Platelet Count 212 X10^3/uL (150-400); Red Blood Cell Count 4.13 X10^6/uL (4.0-5.2); Red Cell Distribution Width 13.2 % (11.6-14.8); White Blood Cell Count 6.6 X10^3/uL (4.5-11.0)
[2019-11-26 09:43] LABS: Hemoglobin A1C% w Est Avg Glu 5.7 % (4.0-6.0)
[2019-11-26 09:52] LABS: Alanine Aminotransferase 19 IU/L (<35); Albumin 3.9 g/dL (3.5-5.0); Albumin Globulin Ratio 1.3 (1.0-2.8); Alkaline Phosphatase 56 U/L (38-126); Aspartate Aminotransferase 28 IU/L (14-36); BUN Creatinine Ratio 25.6 (6-22); Bilirubin Total 0.4 mg/dL (0.2-1.3); Blood Urea Nitrogen 10 mg/dL (7-17); Calcium 9.4 mg/dL (8.4-10.2); Carbon Dioxide 30 mmol/L (22-32); Chloride 103 mmol/L (98-107); Cholesterol 202 mg/dL (140-199); Estimated Glomerular Filt Rate > 60.0 mL/min (>60); Globulin 2.9 g/dL (1.7-4.1); Glucose 93 mg/dL (80-110); HDL Cholesterol 66 mg/dL (40-60); HEMOLYSIS < 15 (0-50); LDL Cholesterol Calculated 95 mg/dL (<100); Sodium 138 mmol/L (137-145); Total Protein 6.8 g/dL (6.3-8.2); Triglycerides 205 mg/dL (35-150)
[2019-11-26 10:31] LABS: TSH w/ Reflex to FT4 1.66 uIU/mL (0.47-4.68)
== END ==
PROVIDERS: PCP Family Medicine; Referring Provider Family Medicine; Visit Provider Family Medicine
DX: G89.4 Chronic pain syndrome (principal); I10 Essential (primary) hypertension; Z96.659 Presence of unspecified artificial knee joint
CPT/HCPCS: 36415; 80053; 80061; 83036; 84443; 85025

== ENCOUNTER → 2020-11-04 09:12 | Outpatient (CLI) | payer OTHER, SELFPAY ==
[2020-10-24 15:43] VITALS: BMI 44.7
[2020-11-04 10:28] LABS: Add Manual Diff / Slide Review NO; Basophils Absolute Auto 0 /uL (0-100); Basophils Percent Auto 0.4 % (0-2); Eosinophils Absolute Auto 100 /uL (0-450); Eosinophils Percent Auto 1.5 % (2-4); Hematocrit 38.8 % (36-46); Hemoglobin 12.8 g/dL (12.0-16.0); Lymphocytes Absolute Auto 1600 /uL (1100-4500); Lymphocytes Percent Auto 29.5 % (25-40); Mean Corpuscular Hemoglobin 30.7 PG (26-34); Monocytes Absolute Auto 600 /uL (0-900); Monocytes Percent Auto 11.1 % (3-14); Neutrophils Absolute Auto 3100 /uL (1500-7000); Neutrophils Percent Auto 57.5 % (50-75); Platelet Count 201 X10^3/uL (150-400); Red Blood Cell Count 4.17 X10^6/uL (4.0-5.2); White Blood Cell Count 5.5 X10^3/uL (4.5-11.0)
[2020-11-04 10:52] LABS: Alanine Aminotransferase 22 IU/L (<35); Albumin 3.7 g/dL (3.5-5.0); Albumin Globulin Ratio 1.2 (1.0-2.8); Alkaline Phosphatase 50 U/L (38-126); Aspartate Aminotransferase 28 IU/L (14-36); BUN Creatinine Ratio 18.6 (6-22); Bilirubin Total 0.3 mg/dL (0.2-1.3); Blood Urea Nitrogen 8 mg/dL (7-17); Carbon Dioxide 32 mmol/L (22-32); Chloride 103 mmol/L (98-107); Cholesterol 195 mg/dL (140-199); Estimated Glomerular Filt Rate > 60.0 mL/min (>60); Globulin 3.1 g/dL (1.7-4.1); HDL Cholesterol 49 mg/dL (40-60); HEMOLYSIS < 15 (0-50); LDL Cholesterol Calculated 96 mg/dL (<100); Potassium 3.9 mmol/L (3.4-5.1); Sodium 139 mmol/L (137-145); Total Protein 6.8 g/dL (6.3-8.2); Triglycerides 252 mg/dL (35-150)
[2020-11-04 11:08] LABS: Glucose 85 mg/dL (80-110)
[2020-11-04 12:09] LABS: TSH w/ Reflex to FT4 1.07 uIU/mL (0.47-4.68)
[2020-11-04 12:16] LABS: Hemoglobin A1C% w Est Avg Glu 5.7 % (4.0-6.0)
== END ==
PROVIDERS: PCP Family Medicine; Referring Provider Family Medicine; Visit Provider Family Medicine
DX: E66.9 Obesity, unspecified (principal); G89.4 Chronic pain syndrome; I10 Essential (primary) hypertension
CPT/HCPCS: 36415; 80053; 80061; 83036; 84443; 85025

== ENCOUNTER → 2022-04-13 10:35 | Outpatient (CLI) | payer OTHER, SELFPAY ==
[2020-10-24 15:43] VITALS: BMI 44.7
[2022-04-13 11:47] LABS: Influenza A - CEPHEID Flu A POSITIVE (NEGATIVE); Influenza B - CEPHEID Flu B NEGATIVE (NEGATIVE); Respiratory Syncytial Virus Negative (Negative)
[2022-04-13 11:48] LABS: COVID-19 CEPHEID 4-PLEX PCR Negative (Negative)
== END ==
PROVIDERS: PCP Family Medicine; Visit Provider Nurse Practitioner Family
DX: J06.9 Acute upper respiratory infection, unspecified (principal); Z20.822 Contact with and (suspected) exposure to COVID-19
CPT/HCPCS: 0241U

== ENCOUNTER → 2022-08-10 14:46 | Outpatient (CLI) | payer OTHER, SELFPAY ==
[2020-10-24 15:43] VITALS: BMI 44.7
[2022-08-10 15:15] LABS: Add Manual Diff / Slide Review NO; Basophils Absolute Auto 100 /uL (0-100); Basophils Percent Auto 0.8 % (0-2); Eosinophils Absolute Auto 100 /uL (0-450); Eosinophils Percent Auto 0.6 % (2-4); Hematocrit 38.3 % (36-46); Hemoglobin 13.2 g/dL (12.0-16.0); Lymphocytes Absolute Auto 2800 /uL (1100-4500); Lymphocytes Percent Auto 31.1 % (25-40); Mean Corpuscular HGB Conc 34.4 % (30-36); Mean Corpuscular Hemoglobin 31.5 PG (26-34); Mean Corpuscular Volume 91.5 fL (80-100); Monocytes Absolute Auto 700 /uL (0-900); Monocytes Percent Auto 7.2 % (3-14); Neutrophils Absolute Auto 5500 /uL (1500-7000); Neutrophils Percent Auto 60.3 % (50-75); Platelet Count 242 X10^3/uL (150-400); Red Blood Cell Count 4.18 X10^6/uL (4.0-5.2); Red Cell Distribution Width 13.1 % (11.6-14.8); White Blood Cell Count 9.1 X10^3/uL (4.5-11.0)
[2022-08-10 15:36] LABS: Alanine Aminotransferase 22 IU/L (<35); Albumin 3.9 g/dL (3.5-5.0); Albumin Globulin Ratio 1.2 (1.0-2.8); Alkaline Phosphatase 67 U/L (38-126); Aspartate Aminotransferase 25 IU/L (14-36); BUN Creatinine Ratio 25.8 (6-22); Bilirubin Total 0.2 mg/dL (0.2-1.3); Blood Urea Nitrogen 16 mg/dL (7-17); Calcium 9.1 mg/dL (8.4-10.2); Carbon Dioxide 31 mmol/L (22-32); Chloride 98 mmol/L (98-107); Estimated Glomerular Filt Rate > 60 mL/min (>60); Globulin 3.2 g/dL (1.7-4.1); Glucose 103 mg/dL (80-110); HEMOLYSIS < 15 (0-50); Potassium 4.3 mmol/L (3.4-5.1); Sodium 135 mmol/L (137-145); Total Protein 7.1 g/dL (6.3-8.2)
[2022-08-10 16:16] LABS: Appearance Urine UA CLEAR; Bilirubin Urine UA 1+ (NEGATIVE); Color Urine UA ORANGE; Glucose Urine UA TRACE g/dL (Negative); Ketones Urine UA NEGATIVE (NEGATIVE); Leukocyte Esterase Urine UA NEGATIVE (NEGATIVE); Nitrite Urine UA POSITIVE (Negative); Occult Blood Urine UA NEGATIVE (Negative); Protein Urine UA 1+ (Negative); Specific Gravity Urine UA >=1.030 (1.000-1.035)
[2022-08-10 16:27] LABS: Bacteria Urine Moderate (10-30); Culture Indicated Urine Specimen Cultured; Ictotest Urine Positive (Negative); RBC Urine None Seen (0-5/HPF); Squamous Epithelial Cell Urine 5-10 /HPF (0-5/HPF); WBC Urine 0-1/HPF (0-5/HPF)
== END ==
PROVIDERS: PCP Family Medicine; Referring Provider Family Medicine; Visit Provider Family Medicine
DX: G89.4 Chronic pain syndrome (principal); I10 Essential (primary) hypertension; Z96.659 Presence of unspecified artificial knee joint; R30.9 Painful micturition, unspecified
CPT/HCPCS: 36415; 80053; 81001; 85025; 87086

== ENCOUNTER → 2022-08-23 17:37 | Outpatient (CLI) | payer OTHER, SELFPAY ==
[2020-10-24 15:43] VITALS: BMI 44.7
[2022-08-23 18:43] LABS: Appearance Urine UA CLEAR; Bilirubin Urine UA NEGATIVE (NEGATIVE); Color Urine UA YELLOW; Glucose Urine UA NEGATIVE (Negative); Ketones Urine UA NEGATIVE (NEGATIVE); Leukocyte Esterase Urine UA NEGATIVE (NEGATIVE); Nitrite Urine UA NEGATIVE (Negative); Occult Blood Urine UA NEGATIVE (Negative); Protein Urine UA NEGATIVE (Negative); Urobilinogen Urine UA 0.2 E.U./dL (0.2)
[2022-08-23 18:51] LABS: RBC Urine None Seen (0-5/HPF)
[2022-08-23 18:52] LABS: Bacteria Urine None Seen; Culture Indicated Urine Cult Not Indicated; Mucus Urine 1+ (Negative); Squamous Epithelial Cell Urine 5-10 /HPF (0-5/HPF); WBC Urine 0-1/HPF (0-5/HPF)
== END ==
PROVIDERS: PCP Family Medicine; Referring Provider Family Medicine; Visit Provider Family Medicine
DX: R30.0 Dysuria (principal)
CPT/HCPCS: 81001

== ENCOUNTER → 2022-08-26 14:04 | Outpatient (CLI) | payer OTHER, SELFPAY ==
[2020-10-24 15:43] VITALS: BMI 44.7
== END ==
PROVIDERS: PCP Family Medicine; Visit Provider Nurse Practitioner Family
DX: R30.0 Dysuria (principal)
CPT/HCPCS: 87086; 87210

== ENCOUNTER → 2023-07-11 13:17 | Outpatient (CLI) | payer OTHER, SELFPAY ==
[2020-10-24 15:43] VITALS: BMI 44.7
[2023-07-11 14:03] LABS: Add Manual Diff / Slide Review NO; Basophils Absolute Auto 0 /uL (0-100); Basophils Percent Auto 0.4 % (0-2); Eosinophils Absolute Auto 0 /uL (0-450); Eosinophils Percent Auto 0.4 % (2-4); Hematocrit 40.5 % (36-46); Hemoglobin 13.6 g/dL (12.0-16.0); Lymphocytes Absolute Auto 2100 /uL (1100-4500); Lymphocytes Percent Auto 29.1 % (25-40); Mean Corpuscular HGB Conc 33.6 % (30-36); Mean Corpuscular Hemoglobin 30.2 PG (26-34); Mean Corpuscular Volume 89.9 fL (80-100); Monocytes Absolute Auto 700 /uL (0-900); Monocytes Percent Auto 9.1 % (3-14); Neutrophils Absolute Auto 4400 /uL (1500-7000); Platelet Count 248 X10^3/uL (150-400); Red Cell Distribution Width 13.1 % (11.6-14.8); White Blood Cell Count 7.3 X10^3/uL (4.5-11.0)
[2023-07-11 15:30] LABS: TSH w/ Reflex to FT4 1.02 uIU/mL (0.47-4.68)
[2023-07-11 17:30] LABS: Alanine Aminotransferase 17 IU/L (<35); Albumin 4.2 g/dL (3.5-5.0); Albumin Globulin Ratio 1.1 (1.0-2.8); Alkaline Phosphatase 65 U/L (38-126); Aspartate Aminotransferase 24 IU/L (14-36); BUN Creatinine Ratio 26.2 (6-22); Bilirubin Total 0.5 mg/dL (0.2-1.3); Blood Urea Nitrogen 11 mg/dL (7-17); Calcium 9.3 mg/dL (8.4-10.2); Carbon Dioxide 30 mmol/L (22-32); Chloride 104 mmol/L (98-107); Cholesterol 234 mg/dL (140-199); Estimated Glomerular Filt Rate > 60 mL/min (>60); Globulin 3.7 g/dL (1.7-4.1); Glucose 95 mg/dL (80-110); HDL Cholesterol 75 mg/dL (40-60); HEMOLYSIS < 15 (0-50); LDL Cholesterol Calculated 123 mg/dL (<100); Sodium 136 mmol/L (137-145); Total Protein 7.9 g/dL (6.3-8.2); Triglycerides 180 mg/dL (35-150)
== END ==
PROVIDERS: PCP Family Medicine; Referring Provider Family Medicine; Visit Provider Family Medicine
DX: I10 Essential (primary) hypertension (principal); E66.01 Morbid (severe) obesity due to excess calories; Z68.42 Body mass index [BMI] 45.0-49.9, adult
CPT/HCPCS: 36415; 80053; 80061; 84443; 85025

== ENCOUNTER → 2024-06-23 18:11 | Outpatient (CLI) | payer SELFPAY ==
[2020-10-24 15:43] VITALS: BMI 44.7
== END ==
PROVIDERS: PCP Family Medicine; Visit Provider Physician Assistant Surgical
DX: R30.0 Dysuria (principal); N89.8 Other specified noninflammatory disorders of vagina
CPT/HCPCS: 87086; 87210